=== PATIENT | female | born 1995 | race Caucasian/White ===

== ENCOUNTER 2018-06-06 18:31 | Emergency (ER) | payer BC, OTHER ==
[2018-06-06] MEDS ORDERED: Sodium Chloride 0.9% 1000 ML 1,000 ML IV STA (19:12)
--- NOTE | 2018-06-06 19:43 | ERPHSYRPT ---
- History of Present Illness Time Seen by Provider: 06/06/18 19:42 Historian: patient Exam Limitations: no limitations Patient Subjective Stated Complaint: is approx 10-11 weeks and is having lots of vomiting yesterday and today. was instructed by her family doctor to come to er if vomiting continues. Triage Nursing Assessment: ambulated to room per self. skin w/d, color normal, resp easy. abd soft. no vomiting at present time. has intermittent cramping in upper abd. denies diarrhea. she is to see ob doctor on friday Physician History: is approx 10-11 weeks and is having lots of vomiting yesterday and today. was instructed by her family doctor to come to er if vomiting continues. Timing/Duration: yesterday Activities at Onset: none Associated Symptoms: nausea, vomiting, other (she is 10-11 weeks .) Allergies/Adverse Reactions: Sulfa (Sulfonamide Antibiotics) Allergy (Verified 06/06/18 18:58) Home Medications: Vits W-Ca,Fe,FA(<1Mg) [] 1 each PO DAILY 06/06/18 [History] Hx Tetanus, Diphtheria Vaccination/Date Given: No Hx Influenza Vaccination/Date Given: No Hx Pneumococcal Vaccination/Date Given: No - Review of Systems Constitutional: No Fever, No Chills Eyes: No Symptoms Ears, Nose, & Throat: No Symptoms Respiratory: No Cough, No Dyspnea Cardiac: No Chest Pain, No Edema, No Syncope Abdominal/Gastrointestinal: No Abdominal Pain, No Nausea, No Vomiting, No Diarrhea Genitourinary Symptoms: No Dysuria Musculoskeletal: No Back Pain, No Neck Pain Skin: No Rash Neurological: No Dizziness, No Focal Weakness, No Sensory Changes Psychological: No Symptoms Endocrine: No Symptoms All Other Systems: Reviewed and Negative - Past Medical History Pertinent Past Medical History: Yes Other Medical History: reflux of kidneys - Past Surgical History Past Surgical History: Yes Musculoskeletal: Orthopedic Surgery Other Surgical History: right knee - Social History Smoking Status: Never smoker Exposure to second hand smoke: No Drug Use: none Patient Lives Alone: No - Female History Hx Last Menstrual Period: 03/25/18 Hx Now: Yes - Nursing Vital Signs Nursing Vital Signs: Initial Vital Signs Temperature 98.5 F 06/06/18 18:47 Pulse Rate 97 H 06/06/18 18:47 Respiratory Rate 16 06/06/18 18:47 Blood Pressure 122/99 06/06/18 18:47 O2 Sat by Pulse Oximetry 96 06/06/18 18:47 Pain Scale Pain Intensity 0 - Physical Exam General Appearance: no apparent distress, alert Eye Exam: PERRL/EOMI, eyes nml inspection Ears, Nose, Throat Exam: normal ENT inspection, pharynx normal, moist mucous membranes Neck Exam: normal inspection, non-tender, supple, full range of motion Respiratory Exam: normal breath sounds, lungs clear, No respiratory distress Cardiovascular Exam: regular rate/rhythm, normal heart sounds Gastrointestinal/Abdomen Exam: soft, No tenderness, No mass Back Exam: normal inspection, normal range of motion, No CVA tenderness, No vertebral tenderness Extremity Exam: normal inspection, normal range of motion, pelvis stable Neurologic Exam: alert, 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, cooperative, normal mood/affect, nml cerebellar function, sensation nml, No motor deficits Skin Exam: normal color, warm, dry SpO2: 96 Oxygen Delivery: Room Air - Course Nursing assessment & vital signs reviewed: Yes Ordered Tests: Active Orders 24 hr Category Date Time Status CBC W DIFF Stat Lab 06/06/18 19:45 Completed CMP Stat Lab 06/06/18 20:00 Completed CULTURE,URINE Stat Lab 06/06/18 20:23 Received HCG, Quantitative (Inhouse) Stat Lab 06/06/18 20:00 Received UA W/RFX UR CULTURE Stat Lab 06/06/18 20:23 Completed Medication Summary Generic Name Dose Route Start Last Admin Trade Name Freq PRN Reason Stop Dose Admin Ceftriaxone Sodium/Dextrose 1 g in 50 mls @ 100 mls/hr 06/06/18 20:55 Rocephin 1 Gm-D5w 50 Ml Bag IV 06/06/18 21:24 STAT STA Discontinued Medications Generic Name Dose Route Start Last Admin Trade Name Freq PRN Reason Stop Dose Admin Sodium Chloride 1,000 mls @ 999 mls/hr 06/06/18 19:12 06/06/18 20:24 Sodium Chloride 0.9% 1000 Ml IV 06/06/18 20:12 999 mls/hr .Q1H1M STA Administration Sodium Chloride Confirm 06/06/18 20:23 Sodium Chloride 0.9% 1000 Ml Administered 06/06/18 20:24 Dose 1,000 mls @ ud [facility] Lab/Rad Data: Laboratory Result Diagrams 06/06/18 19:45 06/06/18 20:00 Laboratory Results 06/06/18 06/06/18 06/06/18 Range/Units 20:23 20:00 19:45 WBC 14.8 H (4.0-10.5) K/mm3 RBC 4.77 (4.1-5.4) M/mm3 Hgb 14.5 (12.0-16.0) gm/dl Hct 42.3 (35-47) % MCV 88.7 (78-100) fl MCH 30.4 (26-32) pg MCHC 34.3 (32-36) g/dl RDW 12.7 (11.5-14.0) % Plt Count 249 (150-450) K/mm3 MPV 10.5 H (6-9.5) fl Gran % 73.6 H (36.0-66.0) % Eos # (Auto) 0.16 (0-0.5) Absolute Lymphs (auto) 2.41 (1.0-4.6) Absolute Monos (auto) 1.29 (0.0-1.3) Lymphocytes % 16.3 L (24.0-44.0) % Monocytes % 8.7 (0.0-12.0) % Eosinophils % 1.1 (0.00-5.0) % Basophils % 0.3 (0.0-0.4) % Absolute Granulocytes 10.85 H (1.4-6.9) Basophils # 0.04 (0-0.4) Sodium 136 L (137-145) mmol/L Potassium 3.9 (3.5-5.1) mmol/L Chloride 104 (98-107) mmol/L Carbon Dioxide 22 (22-30) mmol/L Anion Gap 14.0 (5-15) MEQ/L BUN 7 (7-17) mg/dL Creatinine 0.66 (0.52-1.04) mg/dL Estimated GFR > 60.0 ML/MIN Glucose 90 (74-106) mg/dL Calcium 9.8 (8.4-10.2) mg/dL Total Bilirubin 0.40 (0.2-1.3) mg/dL AST 25 (14-36) U/L ALT 34 (0-35) U/L Alkaline Phosphatase 58 (38-126) U/L Serum Total Protein 7.4 (6.3-8.2) g/dL Albumin 4.3 (3.5-5.0) g/dL Urine Color YELLOW (YELLOW) Urine Appearance SLIGHTLY CLOUDY (CLEAR) Urine pH 6.0 (5-6) Ur Specific [place] 1.006 (1.005-1.025) Urine Protein NEGATIVE (Negative) Urine Ketones NEGATIVE (NEGATIVE) Urine Blood NEGATIVE (0-5) Pako/ul Urine Nitrite POSITIVE (NEGATIVE) Urine Bilirubin NEGATIVE (NEGATIVE) Urine Urobilinogen NEGATIVE (0-1) mg/dL Ur Leukocyte Esterase TRACE (NEGATIVE) Urine WBC (Auto) 11-15 (0-5) /HPF Urine RBC (Auto) 0-2 (0-2) /HPF U Epithel Cells (Auto) FEW (FEW) /HPF Urine Bacteria (Auto) MODERATE (NEGATIVE) /HPF Urine Mucus (Auto) SLIGHT (NEGATIVE) /HPF Urine Culture Reflexed YES (NO) Urine Glucose NEGATIVE (NEGATIVE) mg/dL - Progress Progress: improved Counseled pt/family regarding: lab results, diagnosis, need for follow-up - Departure Time of Disposition: 21:16 Departure Disposition: Home Clinical Impression: Urinary tract bacterial infections Qualifiers: Weeks of gestation: 12 weeks Qualified Code(s): Z3A.12 - 12 weeks gestation of Condition: Stable Critical Care Time: No Referrals: MELINA CHRISTIANSON MD [Primary Care Provider] - Instructions: Urinary Tract Infections in Adults Additional Instructions: URINARY TRACT INFECTION 1. You will need to drink plenty of fluids in order to keep your urinary system flushed. These fluids should mainly consist of water and juices. 2. Take medications as directed. You need to completely finish any antiobiotic prescription given. 3. Try to avoid coffee, tea, alcohol, and seasoned foods as they may cause bladder irritation. 4. If signs and symptoms persist after 3-4 days, you will need to follow up with your family physician. 5. Female Patients: A. Avoid intercourse for 3-4 days. B. Empty bladder before and after intercourse to reduce risk of re- infection. C. After emptying bladder, wipe from front to back to reduce the risk of re- infection. Prescriptions: Nitrofurantoin Macro 100 mg [Macrobid 100MG Capsule] 100 mg PO BID #20 cap
[2018-06-06] MEDS ORDERED: Sodium Chloride 0.9% 1000 ML 1,000 ML ONE (20:23)
[2018-06-06 20:34] LABS: BASOPHIL % 0.3 % (0.0-0.4); Basophil (Absolute #) 0.04 (0-0.4); Eosinophil % 1.1 % (0.00-5.0); Eosinophil (Absolute #) 0.16 (0-0.5); Granulocyte Absolute (ANC) 10.85 (1.4-6.9); Granulocytes % 73.6 % (36.0-66.0); Hematocrit 42.3 % (35-47); Hemoglobin 14.5 gm/dl (12.0-16.0); Lymphocyte (Absolute #) 2.41 (1.0-4.6); Lymphocytes % 16.3 % (24.0-44.0); Mean Cell Volume 88.7 fl (78-100); Mean Corpuscular Hemoglobin 30.4 pg (26-32); Mean Corpuscular Hgb Concent. 34.3 g/dl (32-36); Mean Platelet Volume 10.5 fl (6-9.5); Monocyte (Absolute #) 1.29 (0.0-1.3); Monocytes % 8.7 % (0.0-12.0); Platelet Count 249 K/mm3 (150-450); Red Blood Count 4.77 M/mm3 (4.1-5.4); Red Cell Distribution Width 12.7 % (11.5-14.0); White Blood Count 14.8 K/mm3 (4.0-10.5)
[2018-06-06 20:41] LABS: ALBUMIN 4.3 g/dL (3.5-5.0); ALKALINE PHOSPHATASE 58 U/L (38-126); BLOOD UREA NITROGEN 7 mg/dL (7-17); CHLORIDE 104 mmol/L (98-107); Calcium 9.8 mg/dL (8.4-10.2); Carbon Dioxide 22 mmol/L (22-30); Creatinine 1 0.66 mg/dL (0.52-1.04); Glucose 90 mg/dL (74-106); Potassium 3.9 mmol/L (3.5-5.1); SGOT/AST 25 U/L (14-36); SGPT/ALT 34 U/L (0-35); SODIUM 136 mmol/L (137-145); Total Protein 7.4 g/dL (6.3-8.2)
[2018-06-06] MEDS ORDERED: ROCEPHIN 1 Gm-D5w 50 ml Bag** 1 G/50 ML IVPB IV STA (20:55)
[2018-06-06 21:07] LABS: Appearance SLIGHTLY CLOUDY (CLEAR); Bilirubin NEGATIVE (NEGATIVE); Blood NEGATIVE Ery/ul (0-5); Glucose NEGATIVE (NEGATIVE); Ketones NEGATIVE (NEGATIVE); Leukocyte Esterase TRACE (NEGATIVE); Nitrite POSITIVE (NEGATIVE); Protein,Urine Dip NEGATIVE (Negative); Specific Gravity 1.006 (1.005-1.025); Urobilinogen NEGATIVE mg/dL (0-1)
[2018-06-06] MEDS ORDERED: ROCEPHIN 1 Gm-D5w 50 ml Bag** 1 G/50 ML IVPB IV ONE (21:15)
[2018-06-06 21:53] VITALS: BP 115/67; PULSE 80; O2SAT 98
== END 2018-06-06 22:24 | disposition home or self-care (01) ==
LOC: ED 18:31
DX: O23.41 Unspecified infection of urinary tract in pregnancy, first trimester (principal); Z3A.12 12 weeks gestation of pregnancy
CPT/HCPCS: 36415; 80053; 81001; 84702; 85025; 87077; 87086; 87186; 96360; 96365; 99284; J0696

== ENCOUNTER 2018-06-16 12:42 | Emergency (ER) | payer OTHER ==
--- NOTE | 2018-06-16 13:28 | ERPHSYRPT ---
- History of Present Illness Time Seen by Provider: 06/16/18 13:10 Source: patient, family Exam Limitations: no limitations Patient Subjective Stated Complaint: pt here for vomiting since last night, vomited more than 10 today, no fever, co abd pain to right side, she is 10 days , no vaginal bleeding or cramping, Triage Nursing Assessment: pt alert, resp easy,skin w/d/p. abb soft, moves all ext Physician History: 23 y/o white female who is 10 weeks presents with n/v that began this am at 0100. she denies abd pain, denies headache, denies diarrhea. she does not have vaginal bleeding. pt is in the middle of macrodantin tx for a uti. Timing/Duration: today Severity: mild Associated Symptoms: nausea, vomiting, No abdominal pain, No cough, No chest pain, No fever, No headaches Allergies/Adverse Reactions: Sulfa (Sulfonamide Antibiotics) Allergy (Verified 06/16/18 12:58) Home Medications: Vits W-Ca,Fe,FA(<1Mg) [] 1 each PO DAILY 06/06/18 [History] Hx Tetanus, Diphtheria Vaccination/Date Given: No Hx Influenza Vaccination/Date Given: No Hx Pneumococcal Vaccination/Date Given: No Immunizations Up to Date: Yes - Review of Systems Constitutional: No Symptoms Eyes: No Symptoms Ears, Nose, & Throat: No Symptoms Respiratory: No Symptoms Cardiac: No Symptoms Abdominal/Gastrointestinal: Nausea, Vomiting, No Abdominal Pain, No Diarrhea Genitourinary Symptoms: No Symptoms, No Dysuria, No Frequency, No Hematuria Musculoskeletal: No Symptoms Skin: No Symptoms Neurological: No Symptoms, No Dizziness, No Headache Psychological: No Symptoms Endocrine: No Symptoms Hematologic/Lymphatic: No Symptoms Immunological/Allergic: No Symptoms All Other Systems: Reviewed and Negative - Past Medical History Pertinent Past Medical History: Yes Neurological History: No Pertinent History ENT History: No Pertinent History Cardiac History: No Pertinent History Respiratory History: No Pertinent History Endocrine Medical History: No Pertinent History Musculoskeletal History: No Pertinent History GI Medical History: No Pertinent History History: No Pertinent History Psycho-Social History: No Pertinent History Female Reproductive Disorders: No Pertinent History Other Medical History: reflux of kidneys - Past Surgical History Past Surgical History: Yes Neuro Surgical History: No Pertinent History Cardiac: No Pertinent History Respiratory: No Pertinent History Gastrointestinal: No Pertinent History Genitourinary: No Pertinent History Musculoskeletal: Orthopedic Surgery Female Surgical History: No Pertinent History Other Surgical History: right knee - Social History Smoking Status: Never smoker Exposure to second hand smoke: Yes Drug Use: none Patient Lives Alone: No - Female History Hx Last Menstrual Period: march Hx Now: Yes Expected Date of Delivery: 02/10/1919 - Nursing Vital Signs Nursing Vital Signs: Initial Vital Signs Temperature 97.8 F 06/16/18 12:53 Pulse Rate 88 06/16/18 12:53 Respiratory Rate 16 06/16/18 12:53 Blood Pressure 123/86 06/16/18 12:53 O2 Sat by Pulse Oximetry 97 06/16/18 12:53 Pain Scale Pain Intensity 0 - Physical Exam General Appearance: no apparent distress, alert, anxiety Eye Exam: PERRL/EOMI, eyes nml inspection Ears, Nose, Throat Exam: normal ENT inspection, moist mucous membranes Neck Exam: normal inspection, non-tender, supple, full range of motion Respiratory Exam: normal breath sounds, lungs clear, airway intact, No chest tenderness, No respiratory distress, No accessory muscle use, No rhonchi, No wheezing, No stridor Cardiovascular Exam: regular rate/rhythm, normal heart sounds, normal peripheral pulses Gastrointestinal/Abdomen Exam: soft, normal bowel sounds, No tenderness, No guarding, No rebound Pelvic Exam: not done Rectal Exam: not done Back Exam: normal inspection, normal range of motion, No CVA tenderness, No vertebral tenderness Extremity Exam: normal inspection, normal range of motion, pelvis stable Neurologic Exam: alert, 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, cooperative, exercise science internship II-XII nml as tested, normal mood/affect Skin Exam: normal color, warm, dry Lymphatic Exam: adenopathy SpO2: 97 Oxygen Delivery: Room Air - Course Nursing assessment & vital signs reviewed: Yes Ordered Tests: Active Orders 24 hr Category Date Time Status Cath for Specimen-Straight STAT Care 06/16/18 13:33 Active Clean Catch Urine Specimen STAT Care 06/16/18 13:31 Active IV Insertion STAT Care 06/16/18 14:15 Active AMYLASE Stat Lab 06/16/18 13:50 Completed CBC W DIFF Stat Lab 06/16/18 13:50 Completed CMP Stat Lab 06/16/18 13:50 Completed LIPASE Stat Lab 06/16/18 13:50 Completed UA W/RFX UR CULTURE Stat Lab 06/16/18 14:00 Completed Medication Summary Discontinued Medications Generic Name Dose Route Start Last Admin Trade Name Constantin PRN Reason Stop Dose Admin Sodium Chloride 1,000 mls @ 999 mls/hr 06/16/18 13:31 06/16/18 14:55 Sodium Chloride 0.9% 1000 Ml IV 06/16/18 14:31 Infused .Q1H1M STA Infusion Sodium Chloride Confirm 06/16/18 13:39 Sodium Chloride 0.9% 1000 Ml Administered 06/16/18 13:40 Dose 1,000 mls @ ud .ROUTE .STK-[facility] ONE Sodium Chloride 1,000 mls @ 999 mls/hr 06/16/18 14:55 06/16/18 16:06 Sodium Chloride 0.9% 1000 Ml IV 06/16/18 15:55 Infused .Q1H1M STA Infusion Sodium Chloride Confirm 06/16/18 14:57 Sodium Chloride 0.9% 1000 Ml Administered 06/16/18 14:58 Dose 1,000 mls @ ud .ROUTE .STK-[facility] ONE Ondansetron HCl 4 mg 06/16/18 13:31 06/16/18 13:50 Zofran 4 Mg/2 Ml Vial IV 06/16/18 13:32 4 mg STAT ONE Administration Ondansetron HCl Confirm 06/16/18 13:39 Zofran 4 Mg/2 Ml Vial Administered 06/16/18 13:40 Dose 4 mg .ROUTE .STK-MED ONE Lab/Rad Data: Laboratory Result Diagrams 06/16/18 13:50 06/16/18 13:50 Laboratory Results 06/16/18 06/16/18 06/16/18 Range/Units 14:00 13:50 13:50 WBC (4.0-10.5) K/mm3 RBC (4.1-5.4) M/mm3 Hgb (12.0-16.0) gm/dl Hct (35-47) % MCV (78-100) fl MCH (26-32) pg MCHC (32-36) g/dl RDW (11.5-14.0) % Plt Count (150-450) K/mm3 MPV (6-9.5) fl Gran % (36.0-66.0) % Eos # (Auto) (0-0.5) Absolute Lymphs (auto) (1.0-4.6) Absolute Monos (auto) (0.0-1.3) Lymphocytes % (24.0-44.0) % Monocytes % (0.0-12.0) % Eosinophils % (0.00-5.0) % Basophils % (0.0-0.4) % Absolute Granulocytes (1.4-6.9) Basophils # (0-0.4) Sodium 138 (137-145) mmol/L Potassium 4.0 (3.5-5.1) mmol/L Chloride 106 (98-107) mmol/L Carbon Dioxide 20 L (22-30) mmol/L Anion Gap 15.3 H (5-15) MEQ/L BUN 4 L (7-17) mg/dL Creatinine 0.55 (0.52-1.04) mg/dL Estimated GFR > 60.0 ML/MIN Glucose 89 (74-106) mg/dL Calcium 9.5 (8.4-10.2) mg/dL Total Bilirubin 0.70 (0.2-1.3) mg/dL AST 23 (14-36) U/L ALT 27 (0-35) U/L Alkaline Phosphatase 63 (38-126) U/L Serum Total Protein 7.6 (6.3-8.2) g/dL Albumin 4.3 (3.5-5.0) g/dL Amylase 64 (30-110) U/L Lipase 94 (23-300) U/L Urine Color YELLOW (YELLOW) Urine Appearance CLOUDY (CLEAR) Urine pH 7.0 (5-6) Ur Specific [place] 1.016 (1.005-1.025) Urine Protein NEGATIVE (Negative) Urine Ketones SMALL-15 (NEGATIVE) Urine Blood NEGATIVE (0-5) Pako/ul Urine Nitrite NEGATIVE (NEGATIVE) Urine Bilirubin NEGATIVE (NEGATIVE) Urine Urobilinogen 2 (0-1) mg/dL Ur Leukocyte Esterase NEGATIVE (NEGATIVE) Urine WBC (Auto) 3-5 (0-5) /HPF Urine RBC (Auto) 0-2 (0-2) /HPF U Epithel Cells (Auto) RARE (FEW) /HPF Urine Bacteria (Auto) RARE (NEGATIVE) /HPF Amorphous Crystals MANY (NEGATIVE) /HPF Urine Mucus (Auto) SLIGHT (NEGATIVE) /HPF Urine Culture Reflexed NO (NO) Urine Glucose NEGATIVE (NEGATIVE) mg/dL Influenza Type A Ag NEGATIVE (NEGATIVE) Influenza Type B Ag NEGATIVE (NEGATIVE) RSV (PCR) NEGATIVE (Negative) 06/16/18 Range/Units 13:50 WBC 14.2 H (4.0-10.5) K/mm3 RBC 4.80 (4.1-5.4) M/mm3 Hgb 14.5 (12.0-16.0) gm/dl Hct 42.3 (35-47) % MCV 88.1 (78-100) fl MCH 30.2 (26-32) pg MCHC 34.3 (32-36) g/dl RDW 12.9 (11.5-14.0) % Plt Count 249 (150-450) K/mm3 MPV 10.5 H (6-9.5) fl Gran % 77.0 H (36.0-66.0) % Eos # (Auto) 0.12 (0-0.5) Absolute Lymphs (auto) 1.95 (1.0-4.6) Absolute Monos (auto) 1.18 (0.0-1.3) Lymphocytes % 13.7 L (24.0-44.0) % Monocytes % 8.3 (0.0-12.0) % Eosinophils % 0.8 (0.00-5.0) % Basophils % 0.2 (0.0-0.4) % Absolute Granulocytes 10.94 H (1.4-6.9) Basophils # 0.03 (0-0.4) Sodium (137-145) mmol/L Potassium (3.5-5.1) mmol/L Chloride (98-107) mmol/L Carbon Dioxide (22-30) mmol/L Anion Gap (5-15) MEQ/L BUN (7-17) mg/dL Creatinine (0.52-1.04) mg/dL Estimated GFR ML/MIN Glucose (74-106) mg/dL Calcium (8.4-10.2) mg/dL Total Bilirubin (0.2-1.3) mg/dL AST (14-36) U/L ALT (0-35) U/L Alkaline Phosphatase (38-126) U/L Serum Total Protein (6.3-8.2) g/dL Albumin (3.5-5.0) g/dL Amylase (30-110) U/L Lipase (23-300) U/L Urine Color (YELLOW) Urine Appearance (CLEAR) Urine pH (5-6) Ur Specific [place] (1.005-1.025) Urine Protein (Negative) Urine Ketones (NEGATIVE) Urine Blood (0-5) Pako/ul Urine Nitrite (NEGATIVE) Urine Bilirubin (NEGATIVE) Urine Urobilinogen (0-1) mg/dL Ur Leukocyte Esterase (NEGATIVE) Urine WBC (Auto) (0-5) /HPF Urine RBC (Auto) (0-2) /HPF U Epithel Cells (Auto) (FEW) /HPF Urine Bacteria (Auto) (NEGATIVE) /HPF Amorphous Crystals (NEGATIVE) /HPF Urine Mucus (Auto) (NEGATIVE) /HPF Urine Culture Reflexed (NO) Urine Glucose (NEGATIVE) mg/dL Influenza Type A Ag (NEGATIVE) Influenza Type B Ag (NEGATIVE) RSV (PCR) (Negative) - Progress Progress: improved Progress Note: 06/16/18 14:55 pt states she is feeling a little better. no further nausea. Counseled pt/family regarding: lab results, diagnosis, need for follow-up - Departure Time of Disposition: 16:11 Departure Disposition: Home Clinical Impression: Vomiting as reason for care in Condition: Stable Critical Care Time: No Referrals: LINUS SCOTT [Primary Care Provider] - Additional Instructions: Drink plenty of fluids. follow up with seater assembler for further management. continue your antibiotics as prescribed.
[2018-06-16] MEDS ORDERED: Sodium Chloride 0.9% 1000 ML 1,000 ML IV STA ×2 (13:31→14:55)
[2018-06-16] MEDS ORDERED: Zofran 4 MG/2 ML VIAL IV ONE (13:31)
[2018-06-16] MEDS ORDERED: Zofran 4 MG/2 ML VIAL ONE (13:39)
[2018-06-16] MEDS ORDERED: Sodium Chloride 0.9% 1000 ML 1,000 ML ONE ×2 (13:39→14:57)
[2018-06-16 13:52] LABS: BASOPHIL % 0.2 % (0.0-0.4); Basophil (Absolute #) 0.03 (0-0.4); Eosinophil % 0.8 % (0.00-5.0); Eosinophil (Absolute #) 0.12 (0-0.5); Granulocyte Absolute (ANC) 10.94 (1.4-6.9); Hematocrit 42.3 % (35-47); Hemoglobin 14.5 gm/dl (12.0-16.0); Lymphocyte (Absolute #) 1.95 (1.0-4.6); Lymphocytes % 13.7 % (24.0-44.0); Mean Cell Volume 88.1 fl (78-100); Mean Corpuscular Hemoglobin 30.2 pg (26-32); Mean Corpuscular Hgb Concent. 34.3 g/dl (32-36); Mean Platelet Volume 10.5 fl (6-9.5); Monocyte (Absolute #) 1.18 (0.0-1.3); Monocytes % 8.3 % (0.0-12.0); Platelet Count 249 K/mm3 (150-450); Red Cell Distribution Width 12.9 % (11.5-14.0); White Blood Count 14.2 K/mm3 (4.0-10.5)
[2018-06-16 14:09] LABS: ALBUMIN 4.3 g/dL (3.5-5.0); ALKALINE PHOSPHATASE 63 U/L (38-126); AMYLASE 64 U/L (30-110); ANION GAP 15.3 MEQ/L (5-15); BLOOD UREA NITROGEN 4 mg/dL (7-17); CHLORIDE 106 mmol/L (98-107); Calcium 9.5 mg/dL (8.4-10.2); Carbon Dioxide 20 mmol/L (22-30); Creatinine 1 0.55 mg/dL (0.52-1.04); Glucose 89 mg/dL (74-106); LIPASE 94 U/L (23-300); SGOT/AST 23 U/L (14-36); SGPT/ALT 27 U/L (0-35); SODIUM 138 mmol/L (137-145); Total Protein 7.6 g/dL (6.3-8.2)
[2018-06-16 14:34] LABS: INFLUENZA A NEGATIVE (NEGATIVE); INFLUENZA B NEGATIVE (NEGATIVE); RESPIRATORY SYNCTIAL VIRUS NEGATIVE (Negative)
[2018-06-16 14:45] LABS: Appearance CLOUDY (CLEAR); Glucose NEGATIVE (NEGATIVE); Ketones SMALL-15 (NEGATIVE); Leukocyte Esterase NEGATIVE (NEGATIVE); Nitrite NEGATIVE (NEGATIVE); Protein,Urine Dip NEGATIVE (Negative); Specific Gravity 1.016 (1.005-1.025)
[2018-06-16 14:46] LABS: Bilirubin NEGATIVE (NEGATIVE); Blood NEGATIVE Ery/ul (0-5); Urobilinogen 2 mg/dL (0-1)
[2018-06-16 15:50] VITALS: PULSE 88
[2018-06-16 16:17] VITALS: BP 113/69; O2SAT 98
== END 2018-06-16 16:30 | disposition home or self-care (01) ==
LOC: ED 12:42
DX: O21.9 Vomiting of pregnancy, unspecified (principal); Z3A.10 10 weeks gestation of pregnancy
CPT/HCPCS: 36415; 80053; 81001; 82150; 83690; 85025; 87631; 96360; 96361; 96374; 99284; P9612; J2405

== ENCOUNTER 2018-06-26 17:29 | Emergency (ER) | payer OTHER ==
[2018-06-26] MEDS ORDERED: Zofran 4 MG/2 ML VIAL IV ONE (17:41)
[2018-06-26] MEDS ORDERED: Sodium Chloride 0.9% 1000 ML 1,000 ML IV STA (17:41)
[2018-06-26] MEDS ORDERED: Sodium Chloride 0.9% 1000 ML 1,000 ML ONE (17:47)
[2018-06-26] MEDS ORDERED: Zofran 4 MG/2 ML VIAL ONE (17:47)
--- NOTE | 2018-06-26 17:47 | ERPHSYRPT ---
- History of Present Illness Historian: patient Hx Tetanus, Diphtheria Vaccination/Date Given: No Hx Influenza Vaccination/Date Given: No Hx Pneumococcal Vaccination/Date Given: No <HU QUEZADA - Last Filed: 06/26/18 18:48> <ALISON GRIFFIN - Last Filed: 06/26/18 21:09> - History of Present Illness Time Seen by Provider: 06/26/18 17:44 Physician History: mild LLQ ache pain for 2 weeks since her last BM, no fever, +NV, rad to back, no vag bleeding, + 11w4d, last us 06/08 was hx normal (HU QUEZADA) Allergies/Adverse Reactions: Sulfa (Sulfonamide Antibiotics) Allergy (Verified 06/16/18 12:58) Home Medications: Vits W-Ca,Fe,FA(<1Mg) [] 1 each PO DAILY 06/06/18 [History] - Review of Systems Constitutional: No Fever Eyes: No Vision Changes Ears, Nose, & Throat: No Mouth Pain Respiratory: No Dyspnea Cardiac: No Chest Pain Abdominal/Gastrointestinal: Abdominal Pain, Nausea, Vomiting Genitourinary Symptoms: No Dysuria Musculoskeletal: Back Pain Skin: No Rash Neurological: No Dizziness <HU QUEZADA - Last Filed: 06/26/18 18:48> - Past Medical History Pertinent Past Medical History: Yes Neurological History: No Pertinent History ENT History: No Pertinent History Cardiac History: No Pertinent History Respiratory History: No Pertinent History Endocrine Medical History: No Pertinent History Musculoskeletal History: No Pertinent History GI Medical History: No Pertinent History History: No Pertinent History Psycho-Social History: No Pertinent History Female Reproductive Disorders: No Pertinent History Other Medical History: reflux of kidneys - Past Surgical History Past Surgical History: Yes Neuro Surgical History: No Pertinent History Cardiac: No Pertinent History Respiratory: No Pertinent History Gastrointestinal: No Pertinent History Genitourinary: No Pertinent History Musculoskeletal: Orthopedic Surgery Female Surgical History: No Pertinent History Other Surgical History: right knee - Social History Smoking Status: Never smoker Exposure to second hand smoke: Yes Drug Use: none Patient Lives Alone: No <HU QUEZADA - Last Filed: 06/26/18 18:48> - Physical Exam General Appearance: no apparent distress Eye Exam: eyes nml inspection Ears, Nose, Throat Exam: moist mucous membranes Neck Exam: normal inspection Respiratory Exam: No respiratory distress Cardiovascular Exam: regular rate/rhythm Gastrointestinal/Abdomen Exam: soft, tenderness, No rebound Back Exam: No CVA tenderness Extremity Exam: normal inspection Neurologic Exam: alert, 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, cooperative Skin Exam: warm, dry <HU QUEZADA - Last Filed: 06/26/18 18:48> - Nursing Vital Signs Nursing Vital Signs: Initial Vital Signs Pulse Rate 74 06/26/18 17:29 Respiratory Rate 20 06/26/18 17:29 Blood Pressure 118/77 06/26/18 17:29 O2 Sat by Pulse Oximetry 95 06/26/18 17:29 Pain Scale Pain Intensity 5 Ordered Tests: Active Orders 24 hr Category Date Time Status IV Insertion STAT Care 06/26/18 17:41 Active Nursing [Miscellaneous Nursing Order] ROUTINE Care 06/26/18 17:43 Active CBC W DIFF Stat Lab 06/26/18 17:56 Completed CMP Stat Lab 06/26/18 17:56 Completed LIPASE Stat Lab 06/26/18 17:56 Completed UA W/RFX UR CULTURE Stat Lab 06/26/18 19:31 Completed Medication Summary Discontinued Medications Generic Name Dose Route Start Last Admin Trade Name Luisq PRN Reason Stop Dose Admin Sodium Chloride 1,000 mls @ 999 mls/hr 06/26/18 17:41 06/26/18 18:04 Sodium Chloride 0.9% 1000 Ml IV 06/26/18 18:41 999 mls/hr .Q1H1M STA Administration Sodium Chloride Confirm 06/26/18 17:47 Sodium Chloride 0.9% 1000 Ml Administered 06/26/18 17:48 Dose 1,000 mls @ ud .ROUTE .[facility]K-[facility] ONE Ondansetron HCl 4 mg 06/26/18 17:41 06/26/18 18:05 Zofran 4 Mg/2 Ml Vial IV 06/26/18 17:42 4 mg STAT ONE Administration Ondansetron HCl Confirm 06/26/18 17:47 Zofran 4 Mg/2 Ml Vial Administered 06/26/18 17:48 Dose 4 mg .ROUTE .STK-[facility] ONE Lab/Rad Data: Laboratory Result Diagrams 06/26/18 17:56 06/26/18 17:56 Laboratory Results 06/26/18 06/26/18 06/26/18 Range/Units 19:31 17:56 17:56 WBC 19.7 H (4.0-10.5) K/mm3 RBC 4.64 (4.1-5.4) M/mm3 Hgb 14.3 (12.0-16.0) gm/dl Hct 41.0 (35-47) % MCV 88.4 (78-100) fl MCH 30.8 (26-32) pg MCHC 34.9 (32-36) g/dl RDW 12.7 (11.5-14.0) % Plt Count 211 (150-450) K/mm3 MPV 11.6 H (6-9.5) fl Gran % 88.1 H (36.0-66.0) % Eos # (Auto) 0.05 (0-0.5) Absolute Lymphs (auto) 1.38 (1.0-4.6) Absolute Monos (auto) 0.88 (0.0-1.3) Lymphocytes % 7.0 L (24.0-44.0) % Monocytes % 4.5 (0.0-12.0) % Eosinophils % 0.3 (0.00-5.0) % Basophils % 0.1 (0.0-0.4) % Absolute Granulocytes 17.34 H (1.4-6.9) Basophils # 0.02 (0-0.4) Sodium 136 L (137-145) mmol/L Potassium 3.9 (3.5-5.1) mmol/L Chloride 104 (98-107) mmol/L Carbon Dioxide 19 L (22-30) mmol/L Anion Gap 16.9 H (5-15) MEQ/L BUN 7 (7-17) mg/dL Creatinine 0.50 L (0.52-1.04) mg/dL Estimated GFR > 60.0 ML/MIN Glucose 95 (74-106) mg/dL Calcium 9.6 (8.4-10.2) mg/dL Total Bilirubin 0.60 (0.2-1.3) mg/dL AST 26 (14-36) U/L ALT 31 (0-35) U/L Alkaline Phosphatase 67 (38-126) U/L Serum Total Protein 8.2 (6.3-8.2) g/dL Albumin 4.7 (3.5-5.0) g/dL Lipase 142 (23-300) U/L Urine Color ALEXANDER (YELLOW) Urine Appearance SLIGHTLY CLOUDY (CLEAR) Urine pH 5.0 (5-6) Ur Specific [place] 1.028 (1.005-1.025) Urine Protein 30 (Negative) Urine Ketones MODERATE (NEGATIVE) Urine Blood NEGATIVE (0-5) Pako/ul Urine Nitrite NEGATIVE (NEGATIVE) Urine Bilirubin NEGATIVE (NEGATIVE) Urine Urobilinogen 4 (0-1) mg/dL Ur Leukocyte Esterase NEGATIVE (NEGATIVE) Urine WBC (Auto) 3-5 (0-5) /HPF Urine RBC (Auto) 0-2 (0-2) /HPF U Epithel Cells (Auto) RARE (FEW) /HPF Urine Bacteria (Auto) RARE (NEGATIVE) /HPF Urine Mucus (Auto) MANY (NEGATIVE) /HPF Urine Culture Reflexed NO (NO) Urine Glucose NEGATIVE (NEGATIVE) mg/dL <HU QUEZADA - Last Filed: 06/26/18 18:48> - Progress Progress: improved Counseled pt/family regarding: lab results, diagnosis <ALISON GRIFFIN - Last Filed: 06/26/18 21:09> - Progress Progress Note: 06/26/18 18:[address] Griffin at 19:00 (HU QUEZADA) 06/26/18 19:47 Pt care discussed and care accepted from Dr Quezada at 19:00. 06/26/18 19:[address] Quezada's page. Dr Collins is not nonfarm animal caretaker for pt's OB doctor, Dr Cantor, who is taking his own call tonight. 06/26/18 20:28 Enema produced good BM and pt is now pain-free and would like to go home. 06/26/18 21:06 I discussed pt with Elen Cantor and Karina. Agrees to have pt return home. Pt can call him if needed. (ALISON GRIFFIN) <HU QUEZADA - Last Filed: 06/26/18 18:48> - Departure Time of Disposition: 21:08 Departure Disposition: Home Critical Care Time: No <ALISON GRIFFIN - Last Filed: 06/26/18 21:09> - Departure Clinical Impression: Constipation Condition: Stable Referrals: LINUS SCOTT [Primary Care Provider] - Additional Instructions: You had an episode of constipation. You were given an enema with good results in the ER. I spoke with your OB doctor, Dr. Cantor. If you have any more problems, he would like for you to call him or see him in the office on Friday. Stay well hydrated.
[2018-06-26 18:12] LABS: BASOPHIL % 0.1 % (0.0-0.4); Basophil (Absolute #) 0.02 (0-0.4); Eosinophil % 0.3 % (0.00-5.0); Eosinophil (Absolute #) 0.05 (0-0.5); Granulocyte Absolute (ANC) 17.34 (1.4-6.9); Granulocytes % 88.1 % (36.0-66.0); Hemoglobin 14.3 gm/dl (12.0-16.0); Lymphocyte (Absolute #) 1.38 (1.0-4.6); Mean Cell Volume 88.4 fl (78-100); Mean Corpuscular Hemoglobin 30.8 pg (26-32); Mean Corpuscular Hgb Concent. 34.9 g/dl (32-36); Mean Platelet Volume 11.6 fl (6-9.5); Monocyte (Absolute #) 0.88 (0.0-1.3); Monocytes % 4.5 % (0.0-12.0); Platelet Count 211 K/mm3 (150-450); Red Blood Count 4.64 M/mm3 (4.1-5.4); Red Cell Distribution Width 12.7 % (11.5-14.0); White Blood Count 19.7 K/mm3 (4.0-10.5)
[2018-06-26 18:30] LABS: ALBUMIN 4.7 g/dL (3.5-5.0); ALKALINE PHOSPHATASE 67 U/L (38-126); ANION GAP 16.9 MEQ/L (5-15); BLOOD UREA NITROGEN 7 mg/dL (7-17); CHLORIDE 104 mmol/L (98-107); Calcium 9.6 mg/dL (8.4-10.2); Carbon Dioxide 19 mmol/L (22-30); Glucose 95 mg/dL (74-106); LIPASE 142 U/L (23-300); Potassium 3.9 mmol/L (3.5-5.1); SGOT/AST 26 U/L (14-36); SGPT/ALT 31 U/L (0-35); SODIUM 136 mmol/L (137-145); Total Protein 8.2 g/dL (6.3-8.2)
[2018-06-26 19:53] LABS: Appearance SLIGHTLY CLOUDY (CLEAR); Bilirubin NEGATIVE (NEGATIVE); Blood NEGATIVE Ery/ul (0-5); Glucose NEGATIVE (NEGATIVE); Ketones MODERATE (NEGATIVE); Leukocyte Esterase NEGATIVE (NEGATIVE); Nitrite NEGATIVE (NEGATIVE); Protein,Urine Dip 30 (Negative); Specific Gravity 1.028 (1.005-1.025); Urobilinogen 4 mg/dL (0-1)
[2018-06-26 21:37] VITALS: BP 122/72; PULSE 78; O2SAT 99
== END 2018-06-26 21:37 | disposition home or self-care (01) ==
LOC: ED 17:29
DX: O26.891 Other specified pregnancy related conditions, first trimester (principal); Z3A.11 11 weeks gestation of pregnancy; R10.32 Left lower quadrant pain; R11.2 Nausea with vomiting, unspecified
CPT/HCPCS: 36000; 36415; 80053; 81001; 83690; 85025; 96374; 96375; 96376; 99284; J2405

== ENCOUNTER 2018-08-08 14:06 | Emergency (ER) | payer OTHER ==
[2018-08-08 14:27] VITALS: O2SAT 99
[2018-08-08 14:37] LABS: Appearance CLOUDY (CLEAR); Bilirubin NEGATIVE (NEGATIVE); Blood NEGATIVE Ery/ul (0-5); Glucose NEGATIVE (NEGATIVE); Ketones SMALL (NEGATIVE); Leukocyte Esterase MODERATE (NEGATIVE); Nitrite NEGATIVE (NEGATIVE); Protein,Urine Dip NEGATIVE (Negative); Specific Gravity 1.016 (1.005-1.025); Urobilinogen 4 mg/dL (0-1)
[2018-08-08] MEDS ORDERED: Sodium Chloride 0.9% 1000 ML 1,000 ML IV STA (14:40)
[2018-08-08] MEDS ORDERED: Phenergan 25 MG INJ IV ONE (14:40)
--- NOTE | 2018-08-08 14:41 | ERPHSYRPT ---
- History of Present Illness Time Seen by Provider: 08/08/18 14:37 Historian: patient, other Exam Limitations: no limitations Patient Subjective Stated Complaint: pt reports left sided abd pain starting approx 0200, states she is 17 weeks and also has vomiting starting a few hours ago as well as weakness. pt had her initial visit 07/30/18 with her OB and states everything checked out okay at that time. pt has experienced some constipation recently but reports normal BM yesterday. pt denies any vaginal discharge or bleeding. pt states she has decreased urination. Triage Nursing Assessment: pt is aox3, pupils perrl, afebrile, resps easy and non labored, pt radial pulses strong and equal, abd soft with tenderness to the LLQ, bowel sounds present and normoactive x4, pt skin pink warm dry. Physician History: The patient is a 23-year-old female at 17 weeks 5 days complaining of mild abdominal pain that began this morning. She feels she is dehydrated. She vomited a couple of times today. She tried to call her OB doctor, Dr. Cantor, but was unable to get through. She has a history of constipation during . Her last bowel movement was yesterday. She denies fever or chills. She denies any vaginal discharge or bleeding. Timing/Duration: today Activities at Onset: none Quality: aching Abdominal Pain Onset Location: RLQ, LLQ Pain Radiation: no radiation Severity of Pain-Max: mild Severity of Pain-Current: mild Modifying Factors: Improves With: nothing, vomiting Associated Symptoms: vomiting Previous symptoms: no prior history Allergies/Adverse Reactions: Sulfa (Sulfonamide Antibiotics) Allergy (Verified 08/08/18 14:27) Home Medications: Vits W-Ca,Fe,FA(<1Mg) [] 1 each PO DAILY 06/06/18 [History] Hx Tetanus, Diphtheria Vaccination/Date Given: (unk) Hx Influenza Vaccination/Date Given: Yes Hx Pneumococcal Vaccination/Date Given: No Immunizations Up to Date: Yes - Review of Systems Constitutional: No Fever, No Chills Eyes: No Symptoms Ears, Nose, & Throat: No Symptoms Respiratory: No Cough, No Dyspnea Cardiac: No Chest Pain, No Edema, No Syncope Abdominal/Gastrointestinal: Abdominal Pain, Nausea, Vomiting Genitourinary Symptoms: No Dysuria Musculoskeletal: No Back Pain, No Neck Pain Skin: No Rash Neurological: No Dizziness, No Focal Weakness, No Sensory Changes Psychological: No Symptoms Endocrine: No Symptoms Hematologic/Lymphatic: No Symptoms Immunological/Allergic: No Symptoms All Other Systems: Reviewed and Negative - Past Medical History Pertinent Past Medical History: Yes Neurological History: No Pertinent History ENT History: No Pertinent History Cardiac History: No Pertinent History Respiratory History: No Pertinent History Endocrine Medical History: No Pertinent History Musculoskeletal History: No Pertinent History GI Medical History: No Pertinent History History: No Pertinent History Psycho-Social History: No Pertinent History Female Reproductive Disorders: No Pertinent History Other Medical History: reflux of kidneys - Past Surgical History Past Surgical History: Yes Neuro Surgical History: No Pertinent History Cardiac: No Pertinent History Respiratory: No Pertinent History Gastrointestinal: No Pertinent History Genitourinary: No Pertinent History Musculoskeletal: Orthopedic Surgery Female Surgical History: No Pertinent History Other Surgical History: right knee - Social History Smoking Status: Never smoker Exposure to second hand smoke: Yes Drug Use: none Patient Lives Alone: No - Female History Hx Last Menstrual Period: 03/11/18 Hx Now: Yes Expected Date of Delivery: 01/11/19 - Nursing Vital Signs Nursing Vital Signs: Initial Vital Signs Temperature 98.2 F 08/08/18 14:15 Pulse Rate 87 08/08/18 14:15 Respiratory Rate 18 08/08/18 14:15 Blood Pressure 129/82 08/08/18 14:15 O2 Sat by Pulse Oximetry 99 08/08/18 14:15 Pain Scale Pain Intensity 8 - Physical Exam General Appearance: no apparent distress, alert Eye Exam: PERRL/EOMI, eyes nml inspection Ears, Nose, Throat Exam: normal ENT inspection, pharynx normal, moist mucous membranes Neck Exam: normal inspection, non-tender, supple, full range of motion Respiratory Exam: normal breath sounds, lungs clear, No respiratory distress Cardiovascular Exam: regular rate/rhythm, normal heart sounds Gastrointestinal/Abdomen Exam: soft, normal bowel sounds, No tenderness Pelvic Exam: not done Rectal Exam: not done Back Exam: normal inspection, normal range of motion, No CVA tenderness, No vertebral tenderness Extremity Exam: normal inspection, normal range of motion, pelvis stable Neurologic Exam: alert, 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, cooperative, normal mood/affect, nml cerebellar function, sensation nml, No motor deficits Skin Exam: normal color, warm, dry SpO2 Interpretation: normal SpO2: 99 Oxygen Delivery: Room Air Ordered Tests: Active Orders 24 hr Category Date Time Status Clean Catch Urine Specimen STAT Care 08/08/18 14:24 Active Heart Tones-ED STAT Care 08/08/18 14:41 Active IV Insertion STAT Care 08/08/18 14:40 Active BMP Stat Lab 08/08/18 14:55 Completed CBC W DIFF Stat Lab 08/08/18 14:55 Completed CULTURE,URINE Stat Lab 08/08/18 14:25 Received UA W/RFX UR CULTURE Stat Lab 08/08/18 14:25 Completed Medication Summary Generic Name Dose Route Start Last Admin Trade Name Freq PRN Reason Stop Dose Admin Sodium Chloride 1,000 mls @ 999 mls/hr 08/08/18 14:40 08/08/18 14:45 Sodium Chloride 0.9% 1000 Ml IV 08/08/18 15:40 999 mls/hr .Q1H1M STA Administration Discontinued Medications Generic Name Dose Route Start Last Admin Trade Name Freq PRN Reason Stop Dose Admin Sodium Chloride Confirm 08/08/18 14:44 Sodium Chloride 0.9% 1000 Ml Administered 08/08/18 14:45 Dose 1,000 mls @ ud .ROUTE .STK-MED ONE Promethazine HCl 12.5 mg 08/08/18 14:40 08/08/18 14:46 Phenergan 25 Mg Inj IV 08/08/18 14:41 12.5 mg STAT ONE Administration Promethazine HCl Confirm 08/08/18 14:43 Phenergan 25 Mg Inj Administered 08/08/18 14:44 Dose 25 mg .ROUTE .STK-MED ONE Lab/Rad Data: Laboratory Result Diagrams 08/08/18 14:55 08/08/18 14:55 Laboratory Results 08/08/18 08/08/18 08/08/18 Range/Units 14:55 14:55 14:25 WBC 13.7 H (4.0-10.5) K/mm3 RBC 4.07 L (4.1-5.4) M/mm3 Hgb 12.7 (12.0-16.0) gm/dl Hct 37.0 (35-47) % MCV 90.9 (78-100) fl MCH 31.2 (26-32) pg MCHC 34.3 (32-36) g/dl RDW 13.2 (11.5-14.0) % Plt Count 273 (150-450) K/mm3 MPV 10.4 H (6-9.5) fl Gran % 78.8 H (36.0-66.0) % Eos # (Auto) 0.06 (0-0.5) Absolute Lymphs (auto) 1.80 (1.0-4.6) Absolute Monos (auto) 1.02 (0.0-1.3) Lymphocytes % 13.2 L (24.0-44.0) % Monocytes % 7.5 (0.0-12.0) % Eosinophils % 0.4 (0.00-5.0) % Basophils % 0.1 (0.0-0.4) % Absolute Granulocytes 10.76 H (1.4-6.9) Basophils # 0.02 (0-0.4) Sodium 139 (137-145) mmol/L Potassium 3.8 (3.5-5.1) mmol/L Chloride 106 (98-107) mmol/L Carbon Dioxide 21 L (22-30) mmol/L Anion Gap 15.8 H (5-15) MEQ/L BUN 5 L (7-17) mg/dL Creatinine 0.49 L (0.52-1.04) mg/dL Estimated GFR > 60.0 ML/MIN Glucose 94 (74-106) mg/dL Calcium 9.2 (8.4-10.2) mg/dL Urine Color [place] (YELLOW) Urine Appearance CLOUDY (CLEAR) Urine pH 5.0 (5-6) Ur Specific [place] 1.016 (1.005-1.025) Urine Protein NEGATIVE (Negative) Urine Ketones SMALL (NEGATIVE) Urine Blood NEGATIVE (0-5) Pako/ul Urine Nitrite NEGATIVE (NEGATIVE) Urine Bilirubin NEGATIVE (NEGATIVE) Urine Urobilinogen 4 (0-1) mg/dL Ur Leukocyte Esterase MODERATE (NEGATIVE) Urine WBC (Auto) 16-25 (0-5) /HPF Urine RBC (Auto) 6-10 (0-2) /HPF U Epithel Cells (Auto) MANY (FEW) /HPF Urine Bacteria (Auto) MODERATE (NEGATIVE) /HPF Urine Mucus (Auto) MANY (NEGATIVE) /HPF Urine Culture Reflexed YES (NO) Urine Glucose NEGATIVE (NEGATIVE) mg/dL - Progress Progress: improved Progress Note: 08/08/18 15:18 heart tones [address] Cantor's office phone: [phone] 08/08/18 15:43 Pt given phenergan 12.5 mg and NS 1L by IV. Feeling better. No abd pain. Wants to go home and sleep. Counseled pt/family regarding: lab results, diagnosis - Departure Time of Disposition: 15:44 Departure Disposition: Home Clinical Impression: Vomiting, UTI (urinary tract infection) Condition: Stable Critical Care Time: No Referrals: LINUS SCOTT [Primary Care Provider] - Additional Instructions: You had nausea and vomiting today. You had mild abdominal pain as well. You also have a UTI. You were given Phenergan 12.5 mg and fluids by IV in the ER. You are pain free at discharge. Take Phenergan 25 mg orally as needed for nausea and vomiting. Take Macrobid 100 mg 2 times a day for 7 days for the UTI. Follow-up with a call to Dr. Cantor on Friday. Prescriptions: Promethazine HCl 25 mg [Phenergan 25 mg] 25 mg PO Q8H PRN PRN #10 tablet PRN Reason: Nausea/Vomiting Nitrofurantoin Macro 100 mg [Macrobid 100MG Capsule] 100 mg PO BID #14 capsule
[2018-08-08] MEDS ORDERED: Phenergan 25 MG INJ ONE (14:43)
[2018-08-08] MEDS ORDERED: Sodium Chloride 0.9% 1000 ML 1,000 ML ONE (14:44)
[2018-08-08 14:58] LABS: BASOPHIL % 0.1 % (0.0-0.4); Basophil (Absolute #) 0.02 (0-0.4); Eosinophil % 0.4 % (0.00-5.0); Eosinophil (Absolute #) 0.06 (0-0.5); Granulocyte Absolute (ANC) 10.76 (1.4-6.9); Granulocytes % 78.8 % (36.0-66.0); Hemoglobin 12.7 gm/dl (12.0-16.0); Lymphocytes % 13.2 % (24.0-44.0); Mean Cell Volume 90.9 fl (78-100); Mean Corpuscular Hemoglobin 31.2 pg (26-32); Mean Corpuscular Hgb Concent. 34.3 g/dl (32-36); Mean Platelet Volume 10.4 fl (6-9.5); Monocyte (Absolute #) 1.02 (0.0-1.3); Monocytes % 7.5 % (0.0-12.0); Platelet Count 273 K/mm3 (150-450); Red Blood Count 4.07 M/mm3 (4.1-5.4); Red Cell Distribution Width 13.2 % (11.5-14.0); White Blood Count 13.7 K/mm3 (4.0-10.5)
[2018-08-08 15:16] LABS: ANION GAP 15.8 MEQ/L (5-15); BLOOD UREA NITROGEN 5 mg/dL (7-17); CHLORIDE 106 mmol/L (98-107); Calcium 9.2 mg/dL (8.4-10.2); Carbon Dioxide 21 mmol/L (22-30); Creatinine 1 0.49 mg/dL (0.52-1.04); Glucose 94 mg/dL (74-106); Potassium 3.8 mmol/L (3.5-5.1); SODIUM 139 mmol/L (137-145)
[2018-08-08 16:00] VITALS: BP 124/80; PULSE 80
== END 2018-08-08 15:58 | disposition home or self-care (01) ==
LOC: ED 14:06
DX: O21.9 Vomiting of pregnancy, unspecified (principal); O23.42 Unspecified infection of urinary tract in pregnancy, second trimester; Z3A.17 17 weeks gestation of pregnancy
CPT/HCPCS: 36000; 36415; 80048; 81001; 85025; 87086; 96360; 96374; 99284; J2550

== ENCOUNTER 2018-11-19 19:26 | Emergency (ER) | payer OTHER ==
[2018-11-19] MEDS ORDERED: Sodium Chloride 0.9% 1000 ML 1,000 ML IV STA (20:06)
[2018-11-19] MEDS ORDERED: Zofran 4 MG/2 ML VIAL IV ONE (20:06)
[2018-11-19] MEDS ORDERED: Zofran 4 MG/2 ML VIAL ONE ×2 (20:11→20:25)
[2018-11-19] MEDS ORDERED: Sodium Chloride 0.9% 1000 ML 1,000 ML ONE (20:11)
--- NOTE | 2018-11-19 20:11 | ERPHSYRPT ---
- History of Present Illness Time Seen by Provider: 11/19/18 19:48 Historian: patient Exam Limitations: clinical condition Patient Subjective Stated Complaint: pt is alert and oriented. pt is ambulatory with a steady gait. pt comes in with complaints of diarrhea, vomiting, abd pain. pt is 32 weeks . pt complaint of abd pain and pressure since yesterday. pt states she's vomited x6 the last 24 hours and diarrhea everytime she gets on the toilet. pt bowel sounds present x4. pt has large abdomen. pt denies any bleeding, gushing of [place], or any abnormal discharge. pt states her urine has been slightly discolored. pt states she's also had some left flank pain, pt also states she's having difficulty urinating, and pain with urination. pt urine specimen is loretta in color. Triage Nursing Assessment: see above Physician History: PATIENT IS A -1 PARA-0, -0, 32 WEEKS GESTATION COMPLAINS OF GENERALIZED ABDOMINAL PAINS SINCE LAST NIGHT ASSOCIATED WITH LOWER ABDOMINAL PRESSURE UPON SITTING POSITION. HAS FREQUENT EPISODES OF EMESIS X 6 EPISODES AND FREQUENT WATERY DIARRHEA. DENIES FLANK PAIN, FEVER OR URINARY SYMPTOMS. Timing/Duration: yesterday Activities at Onset: none Quality: pressure Abdominal Pain Onset Location: generalized abdomen Severity of Pain-Max: moderate Severity of Pain-Current: moderate Modifying Factors: Improves With: defecating, vomiting Associated Symptoms: diarrhea, nausea, vomiting Previous symptoms: no prior history Allergies/Adverse Reactions: Sulfa (Sulfonamide Antibiotics) Allergy (Verified 08/08/18 14:27) Home Medications: Vits W-Ca,Fe,FA(<1Mg) [] 1 each PO DAILY 06/06/18 [History] Hx Tetanus, Diphtheria Vaccination/Date Given: (unk) Hx Influenza Vaccination/Date Given: Yes Hx Pneumococcal Vaccination/Date Given: No Immunizations Up to Date: Yes - Review of Systems Constitutional: No Fever, No Chills Eyes: No Symptoms Ears, Nose, & Throat: No Symptoms Respiratory: No Symptoms, No Cough, No Dyspnea Cardiac: No Symptoms, No Chest Pain, No Edema, No Syncope Abdominal/Gastrointestinal: Abdominal Pain, Nausea, Vomiting, Diarrhea Genitourinary Symptoms: No Symptoms, No Dysuria Musculoskeletal: No Symptoms, No Back Pain, No Neck Pain Skin: No Symptoms, No Rash Neurological: No Dizziness, No Focal Weakness, No Sensory Changes Psychological: No Symptoms Endocrine: No Symptoms All Other Systems: Reviewed and Negative - Past Medical History Pertinent Past Medical History: Yes Neurological History: No Pertinent History ENT History: No Pertinent History Cardiac History: No Pertinent History Respiratory History: No Pertinent History Endocrine Medical History: No Pertinent History Musculoskeletal History: No Pertinent History GI Medical History: No Pertinent History History: No Pertinent History Psycho-Social History: No Pertinent History Female Reproductive Disorders: No Pertinent History Other Medical History: reflux of kidneys - Past Surgical History Past Surgical History: Yes Neuro Surgical History: No Pertinent History Cardiac: No Pertinent History Respiratory: No Pertinent History Gastrointestinal: No Pertinent History Genitourinary: No Pertinent History Musculoskeletal: Orthopedic Surgery Female Surgical History: No Pertinent History Other Surgical History: right knee ACL - Social History Smoking Status: Never smoker Exposure to second hand smoke: Yes Drug Use: none Patient Lives Alone: Yes - Female History Hx Now: Yes Expected Date of Delivery: 12/01/18 Gestational Age: 32 3 - Nursing Vital Signs Nursing Vital Signs: Initial Vital Signs Pulse Rate 100 H 11/19/18 19:38 Respiratory Rate 18 11/19/18 19:38 Blood Pressure 129/81 11/19/18 19:38 O2 Sat by Pulse Oximetry 98 11/19/18 19:38 Pain Scale Pain Intensity 10 - Physical Exam General Appearance: no apparent distress, alert Eye Exam: PERRL/EOMI, eyes nml inspection Ears, Nose, Throat Exam: normal ENT inspection, pharynx normal, moist mucous membranes Neck Exam: normal inspection, non-tender, supple, full range of motion Respiratory Exam: normal breath sounds, lungs clear, No respiratory distress Cardiovascular Exam: regular rate/rhythm, normal heart sounds Gastrointestinal/Abdomen Exam: soft, normal bowel sounds, other ( WITH UTERUS 5 FINGERBREATHS ABOVE UMBILICUS, MODERATE SUPRAPUBIC AND PERIUMBILICAL TENDERNESS), No tenderness, No mass Back Exam: normal inspection, normal range of motion, other (THERE IS NO CVA TENDERNESS), No CVA tenderness, No vertebral tenderness Extremity Exam: normal inspection, normal range of motion, pelvis stable Neurologic Exam: alert, 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, cooperative, normal mood/affect, nml cerebellar function, sensation nml, No motor deficits Skin Exam: normal color, warm, dry SpO2 Interpretation: normal SpO2: 98 Ordered Tests: Active Orders 24 hr Category Date Time Status Heart Tones-ED STAT Care 11/19/18 20:07 Active Orthostatic Vital Signs STAT Care 11/19/18 20:06 Active AMYLASE Stat Lab 11/19/18 20:00 Completed BLOOD CULTURE Stat Lab 11/19/18 20:28 Ordered CBC W DIFF Stat Lab 11/19/18 20:00 Completed CMP Stat Lab 11/19/18 20:00 Completed CULTURE,URINE Stat Lab 11/19/18 20:00 Received Manual Differential NC Stat Lab 11/19/18 20:00 Completed UA W/RFX UR CULTURE Stat Lab 11/19/18 20:00 Completed Respiratory Nebulizer STAT RT 11/19/18 20:50 Ordered Medication Summary Generic Name Dose Route Start Last Admin Trade Name Freq PRN Reason Stop Dose Admin Sodium Chloride 1,000 mls @ 999 mls/hr 11/19/18 20:06 11/19/18 20:44 Sodium Chloride 0.9% 1000 Ml IV 11/19/18 21:06 999 mls/hr .Q1H1M STA Administration Ceftriaxone Sodium/Dextrose 1 g in 50 mls @ 100 mls/hr 11/19/18 20:28 Rocephin 1 Gm-D5w 50 Ml Bag IV 11/19/18 20:57 STAT STA Discontinued Medications Generic Name Dose Route Start Last Admin Trade Name Freq PRN Reason Stop Dose Admin Sodium Chloride Confirm 11/19/18 20:11 Sodium Chloride 0.9% 1000 Ml Administered 11/19/18 20:12 Dose 1,000 mls @ ud .ROUTE .STK-MED ONE Ceftriaxone Sodium/Dextrose Confirm 11/19/18 20:46 Rocephin 1 Gm-D5w 50 Ml Bag Administered 11/19/18 20:47 Dose 1 g in 50 mls @ ud IV .STK-MED ONE Ondansetron HCl 4 mg 11/19/18 20:06 11/19/18 20:36 Zofran 4 Mg/2 Ml Vial IV 11/19/18 20:07 4 mg STAT ONE Administration Ondansetron HCl Confirm 11/19/18 20:11 Zofran 4 Mg/2 Ml Vial Administered 11/19/18 20:12 Dose 4 mg .ROUTE .STK-MED ONE Ondansetron HCl Confirm 11/19/18 20:25 Zofran 4 Mg/2 Ml Vial Administered 11/19/18 20:26 Dose 4 mg .ROUTE .STK-MED ONE Lab/Rad Data: Laboratory Result Diagrams 11/19/18 20:00 11/19/18 20:00 Laboratory Results 11/19/18 11/19/18 11/19/18 Range/Units 20:00 20:00 20:00 WBC 10.6 H (4.0-10.5) K/mm3 RBC 4.16 (4.1-5.4) M/mm3 Hgb 12.4 (12.0-16.0) gm/dl Hct 37.7 (35-47) % MCV 90.6 (78-100) fl MCH 29.8 (26-32) pg MCHC 32.9 (32-36) g/dl RDW 12.5 (11.5-14.0) % Plt Count 259 (150-450) K/mm3 MPV 10.0 H (6-9.5) fl Absolute Granulocytes 7.61 H (1.4-6.9) Sodium 138 (137-145) mmol/L Potassium 3.5 (3.5-5.1) mmol/L Chloride 107 (98-107) mmol/L Carbon Dioxide 17 L (22-30) mmol/L Anion Gap 17.0 H (5-15) MEQ/L BUN 4 L (7-17) mg/dL Creatinine 0.53 (0.52-1.04) mg/dL Estimated GFR > 60.0 ML/MIN Glucose 98 (74-106) mg/dL Calcium 8.7 (8.4-10.2) mg/dL Total Bilirubin 0.90 (0.2-1.3) mg/dL AST 29 (14-36) U/L ALT 23 (0-35) U/L Alkaline Phosphatase 136 H (38-126) U/L Serum Total Protein 7.2 (6.3-8.2) g/dL Albumin 3.5 (3.5-5.0) g/dL Amylase 83 (30-110) U/L Urine Color [place] (YELLOW) Urine Appearance CLOUDY (CLEAR) Urine pH 6.0 (5-6) Ur Specific [place] 1.016 (1.005-1.025) Urine Protein 30 (Negative) Urine Ketones NEGATIVE (NEGATIVE) Urine Blood NEGATIVE (0-5) Pako/ul Urine Nitrite NEGATIVE (NEGATIVE) Urine Bilirubin SMALL (NEGATIVE) Urine Urobilinogen 4 (0-1) mg/dL Ur Leukocyte Esterase SMALL (NEGATIVE) Urine WBC (Auto) 6-10 (0-5) /HPF Urine RBC (Auto) 3-5 (0-2) /HPF U Epithel Cells (Auto) FEW (FEW) /HPF Urine Bacteria (Auto) MODERATE (NEGATIVE) /HPF Calcium Oxalate Crystal 11-25 (NEGATIVE) /HPF Urine Mucus (Auto) SLIGHT (NEGATIVE) /HPF Urine Culture Reflexed YES (NO) Urine Glucose NEGATIVE (NEGATIVE) mg/dL - Progress Progress Note: 11/19/18 20:32 IV NORMAL SALINE 1 LITER/HR, ZOFRAN 4MG IV AFTER 2 SETS OF BLOOD CULTURES, ROCEPHIN 1GM IVPB 11/19/18 20:33, PATIENT HAS HAD NO EVIDENCE OF NAUSEA, DRY HEAVES OR EMESIS THROUGHOUT HER EMERGENCY ROOM VISIT Discussed with Dr.: Sanat (DISCUSSED WITH DR SANTA AT 2044 FOR TRANSFER TO OB FOR MONITORING AND HYDRATION) - Departure Departure Disposition: Home Clinical Impression: ACUTE EMESIS/DIARRHEA, URINARY TRACT INFECTION, , R/O PREMATURE LABOR Condition: Stable Critical Care Time: No Referrals: FINA DICKINSON [Primary Care Provider] - Additional Instructions: TRANSFER PATIENT TO LABOR AND DELIVERY DEPARTMENT FOR MONITORING AND INTRAVENOUS HYDRATION
[2018-11-19 20:13] LABS: Granulocyte Absolute (ANC) 7.61 (1.4-6.9); Hematocrit 37.7 % (35-47); Hemoglobin 12.4 gm/dl (12.0-16.0); Mean Cell Volume 90.6 fl (78-100); Mean Corpuscular Hemoglobin 29.8 pg (26-32); Mean Corpuscular Hgb Concent. 32.9 g/dl (32-36); Platelet Count 259 K/mm3 (150-450); Red Blood Count 4.16 M/mm3 (4.1-5.4); Red Cell Distribution Width 12.5 % (11.5-14.0); White Blood Count 10.6 K/mm3 (4.0-10.5)
[2018-11-19 20:17] LABS: Appearance CLOUDY (CLEAR); Bacteria MODERATE /HPF (NEGATIVE); Bilirubin SMALL (NEGATIVE); Blood NEGATIVE Ery/ul (0-5); Epithelial Cells FEW /HPF (FEW); Glucose NEGATIVE (NEGATIVE); Ketones NEGATIVE (NEGATIVE); Leukocyte Esterase SMALL (NEGATIVE); Mucus SLIGHT /HPF (NEGATIVE); Nitrite NEGATIVE (NEGATIVE); Protein,Urine Dip 30 (Negative); Specific Gravity 1.016 (1.005-1.025); Urobilinogen 4 mg/dL (0-1)
[2018-11-19 20:23] LABS: ALBUMIN 3.5 g/dL (3.5-5.0); ALKALINE PHOSPHATASE 136 U/L (38-126); AMYLASE 83 U/L (30-110); BLOOD UREA NITROGEN 4 mg/dL (7-17); CHLORIDE 107 mmol/L (98-107); Calcium 8.7 mg/dL (8.4-10.2); Carbon Dioxide 17 mmol/L (22-30); Creatinine 1 0.53 mg/dL (0.52-1.04); Glucose 98 mg/dL (74-106); Potassium 3.5 mmol/L (3.5-5.1); SGOT/AST 29 U/L (14-36); SGPT/ALT 23 U/L (0-35); SODIUM 138 mmol/L (137-145); Total Protein 7.2 g/dL (6.3-8.2)
[2018-11-19] MEDS ORDERED: ROCEPHIN 1 Gm-D5w 50 ml Bag** 1 G/50 ML IVPB IV STA (20:28)
[2018-11-19] MEDS ORDERED: ROCEPHIN 1 Gm-D5w 50 ml Bag** 1 G/50 ML IVPB IV ONE (20:46)
[2018-11-19 21:40] LABS: Eosinophil 2 % (0.00-3.0); Lymphocytes 13 % (24-44); Monocyte 9 % (0.0-12.0); Neutrophils 76 % (36.0-66.0); Platelet Estimate NORMAL (NORMAL); Total Cells Counted 100
[2018-11-19 21:47] LABS: INFLUENZA A NEGATIVE (NEGATIVE); INFLUENZA B NEGATIVE (NEGATIVE); RESPIRATORY SYNCTIAL VIRUS NEGATIVE (Negative)
[2018-11-19 22:00] VITALS: BP 98/80; PULSE 92; O2SAT 100
[2018-11-19 23:11] LABS: Adenovirus F 40/41 NEGATIVE (NEGATIVE); Astrovirus POSITIVE (NEGATIVE); C. Difficile Organism NEGATIVE (NEGATIVE); Campylobacter NEGATIVE (NEGATIVE); Cyclospora cayentanensis NEGATIVE (NEGATIVE); Entamoeaba histolytica NEGATIVE (NEGATIVE); Enteroaggregative E.coli NEGATIVE (NEGATIVE); Giardia lamblia NEGATIVE (NEGATIVE); Rotavirus A NEGATIVE (NEGATIVE); Salmonella NEGATIVE (NEGATIVE); Sapovirus NEGATIVE (NEGATIVE); Shiga-like toxin prod.E.coli NEGATIVE (NEGATIVE); Vibrio NEGATIVE (NEGATIVE)
== END 2018-11-19 22:19 | disposition critical access hospital (66) ==
LOC: ED 19:26
DX: R11.10 Vomiting, unspecified (principal); R19.7 Diarrhea, unspecified; N39.0 Urinary tract infection, site not specified; Z33.1 Pregnant state, incidental; Z3A.38 38 weeks gestation of pregnancy
CPT/HCPCS: 36415; 80053; 81001; 82150; 85025; 87040; 87086; 87507; 87631; 96360; 96365; 96374; 99284; J0696; J2405

== ENCOUNTER 2018-11-19 21:56 | Observation (INO) | payer OTHER ==
[2018-11-19 23:13] VITALS: PULSE 88
[2018-11-20 03:53] VITALS: BP 123/70; O2SAT 100
== END 2018-11-19 23:55 | disposition home or self-care (01) ==
LOC: UNDOADMOB 21:56 → MED SURG 21:56 → OB 21:56 → UNDODISOB 23:55
PROVIDERS: ADMIT Family Medicine; ATTEND Family Medicine
DX: Z34.03 Encounter for supervision of normal first pregnancy, third trimester (principal)
CPT/HCPCS: 36415; 80053; 81001; 82150; 85025; 87040; 87086; 87507; 87631; 96360; 96365; 96374; 99284; G0378; J0696; J2405

== ENCOUNTER 2019-01-09 00:04 | Emergency (ER) | payer OTHER ==
[2019-01-09] MEDS ORDERED: Sodium Chloride 0.9% 1000 ML 1,000 ML IV STA (00:35)
[2019-01-09] MEDS ORDERED: Sodium Chloride 0.9% 1000 ML 1,000 ML ONE (00:41)
[2019-01-09 01:21] LABS: Granulocyte Absolute (ANC) 10.22 (1.4-6.9); Hematocrit 21.7 % (35-47); Mean Cell Volume 90.8 fl (78-100); Mean Corpuscular Hgb Concent. 32.3 g/dl (32-36); Mean Platelet Volume 9.7 fl (6-9.5); Platelet Count 334 K/mm3 (150-450); Red Blood Count 2.39 M/mm3 (4.1-5.4); Red Cell Distribution Width 12.9 % (11.5-14.0); White Blood Count 15.2 K/mm3 (4.0-10.5)
[2019-01-09 01:26] LABS: Mean Corpuscular Hemoglobin 29.2 pg (26-32)
[2019-01-09 01:31] LABS: INR 0.99 (0.8-3.0); PROTIME 11.5 SECONDS (9.95-12.35)
[2019-01-09 01:35] LABS: ANION GAP 12.9 MEQ/L (5-15); BLOOD UREA NITROGEN 6 mg/dL (7-17); CHLORIDE 106 mmol/L (98-107); Calcium 8.2 mg/dL (8.4-10.2); Carbon Dioxide 22 mmol/L (22-30); Creatinine 1 0.56 mg/dL (0.52-1.04); Glucose 89 mg/dL (74-106); Potassium 3.5 mmol/L (3.5-5.1); SODIUM 138 mmol/L (137-145)
--- NOTE | 2019-01-09 02:18 | ERPHSYRPT ---
- History of Present Illness Time Seen by Provider: 01/09/19 00:35 Source: patient Exam Limitations: clinical condition Patient Subjective Stated Complaint: pt is alert and oriented. pt is ambulatory with a steady gait. pt comes in after delivering a baby on Friday. pt states she has been passing some large clots today. pt pad is partially saturated with red blood. pt states she has been soaking through some pads but not in excess of 1 per hour. pt fundus is firm. pt skin is pale warm and dry. pt has some dependent edema. Triage Nursing Assessment: see above Physician History: PATIENT IS POST SPONTANEOUS VAGINAL DELIVERY ON 01/05/2019 COMPLAINS OF HEAVY VAGINAL BLEEDING SINCE DELIVERY, PASSING LARGE CLOTS. HAS ASSOCIATED GENERALIZED WEAKNESS. DENIES ABDOMINAL PAIN OR FEVER. HAS USED 5 VAGINAL PADS TODAY HEAVY SATURATED. Timing/Duration: day(s) Activites at Onset: none Pain Radiation: none Severity of Pain-Max: none Severity of Pain-Current: none Prior abdominal problems: none Sexual intercourse history: non-contributory Modifying Factors: Improves With: nothing Associated Symptoms: denies symptoms Allergies/Adverse Reactions: Cutten And Derivatives Allergy (Verified 11/19/18 22:37) strawberry Allergy (Verified 11/19/18 22:37) Sulfa (Sulfonamide Antibiotics) Allergy (Verified 11/19/18 22:37) Home Medications: Vits W-Ca,Fe,FA(<1Mg) [] 1 each PO DAILY 06/06/18 [History] Hx Tetanus, Diphtheria Vaccination/Date Given: Yes (01/07/19) Hx Influenza Vaccination/Date Given: Yes Hx Pneumococcal Vaccination/Date Given: No - Review of Systems Constitutional: No Fever, No Chills Eyes: No Symptoms Ears, Nose, & Throat: No Symptoms Respiratory: No Symptoms, No Cough, No Dyspnea Cardiac: No Symptoms, No Chest Pain, No Edema, No Syncope Abdominal/Gastrointestinal: No Symptoms, No Abdominal Pain, No Nausea, No Vomiting, No Diarrhea Genitourinary Symptoms: Vaginal Bleeding, No Dysuria Musculoskeletal: No Symptoms, No Back Pain, No Neck Pain Skin: No Rash Neurological: No Dizziness, No Focal Weakness, No Sensory Changes Psychological: No Symptoms Endocrine: No Symptoms All Other Systems: Reviewed and Negative - Past Medical History Pertinent Past Medical History: Yes Neurological History: No Pertinent History ENT History: No Pertinent History Cardiac History: No Pertinent History Respiratory History: No Pertinent History Endocrine Medical History: No Pertinent History Musculoskeletal History: No Pertinent History GI Medical History: No Pertinent History History: No Pertinent History Psycho-Social History: No Pertinent History Female Reproductive Disorders: No Pertinent History Other Medical History: reflux of kidneys - Past Surgical History Past Surgical History: Yes Neuro Surgical History: No Pertinent History Cardiac: No Pertinent History Respiratory: No Pertinent History Gastrointestinal: No Pertinent History Genitourinary: No Pertinent History Musculoskeletal: Orthopedic Surgery Female Surgical History: No Pertinent History Other Surgical History: right knee ACL - Social History Smoking Status: Never smoker Exposure to second hand smoke: Yes Drug Use: none Patient Lives Alone: Yes - Female History Hx Now: No - Nursing Vital Signs Nursing Vital Signs: Initial Vital Signs Pulse Rate 103 H 01/09/19 00:26 Respiratory Rate 18 01/09/19 00:26 Blood Pressure 135/90 01/09/19 00:26 O2 Sat by Pulse Oximetry 99 01/09/19 00:26 Pain Scale Pain Intensity 10 - Physical Exam General Appearance: no apparent distress, alert Eye Exam: PERRL/EOMI, eyes nml inspection Ears, Nose, Throat Exam: normal ENT inspection, TMs normal, pharynx normal, moist mucous membranes Neck Exam: normal inspection, non-tender, supple, full range of motion Respiratory Exam: normal breath sounds, lungs clear, No respiratory distress Cardiovascular Exam: regular rate/rhythm, normal heart sounds, normal peripheral pulses Gastrointestinal/Abdomen Exam: soft, normal bowel sounds (NONTENDER), No tenderness, No mass Pelvic Exam: normal external exam, vaginal bleeding, other (MODERATE VAGINAL BLEEDING, UNABLE TO USE SPECULUM DUE VAGINAL STITCHES) Back Exam: normal inspection, normal range of motion, No CVA tenderness, No vertebral tenderness Extremity Exam: normal inspection, normal range of motion, pelvis stable Neurologic Exam: alert, 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, cooperative, 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 tested, normal mood/affect, sensation nml, No motor deficits Skin Exam: normal color, warm, dry Lymphatic Exam: No adenopathy SpO2 Interpretation: normal SpO2: 100 Ordered Tests: Active Orders 24 hr Category Date Time Status Orthostatic Vital Signs STAT Care 01/09/19 00:35 Active BMP Stat Lab 01/09/19 01:17 Completed CBC W DIFF Stat Lab 01/09/19 01:17 Completed Manual Differential NC Stat Lab 01/09/19 01:17 Completed PROTIME WITH INR Stat Lab 01/09/19 01:17 Completed UA W/RFX UR CULTURE Stat Lab 01/09/19 00:35 Ordered Medication Summary Discontinued Medications Generic Name Dose Route Start Last Admin Trade Name Constantin PRN Reason Stop Dose Admin Sodium Chloride 1,000 mls @ 999 mls/hr 01/09/19 00:35 01/09/19 01:32 Sodium Chloride 0.9% 1000 Ml IV 01/09/19 01:35 999 mls/hr .Q1H1M STA Administration Sodium Chloride Confirm 01/09/19 00:41 Sodium Chloride 0.9% 1000 Ml Administered 01/09/19 00:42 Dose 1,000 mls @ ud .ROUTE .STK-MED ONE Lab/Rad Data: Laboratory Result Diagrams 01/09/19 01:17 01/09/19 01:17 Laboratory Results 01/09/19 01/09/19 01/09/19 Range/Units 01:17 01:17 01:17 WBC 15.2 H (4.0-10.5) K/mm3 RBC 2.39 L (4.1-5.4) M/mm3 Hgb 7.0 L (12.0-16.0) gm/dl Hct 21.7 L (35-47) % MCV 90.8 (78-100) fl MCH 29.2 (26-32) pg MCHC 32.3 (32-36) g/dl RDW 12.9 (11.5-14.0) % Plt Count 334 (150-450) K/mm3 MPV 9.7 H (6-9.5) fl Absolute Granulocytes 10.22 H (1.4-6.9) PT 11.5 (9.95-12.35) SECONDS INR 0.99 (0.8-3.0) Sodium 138 (137-145) mmol/L Potassium 3.5 (3.5-5.1) mmol/L Chloride 106 (98-107) mmol/L Carbon Dioxide 22 (22-30) mmol/L Anion Gap 12.9 (5-15) MEQ/L BUN 6 L (7-17) mg/dL Creatinine 0.56 (0.52-1.04) mg/dL Estimated GFR > 60.0 ML/MIN Glucose 89 (74-106) mg/dL Calcium 8.2 L (8.4-10.2) mg/dL - Progress Progress Note: 01/09/19 02:26 IV NORMAL SALINE 1 LITER/HR, PATIENT TYPE AND CROSS FOR 2 UNITS OF PACKED RED BLOOD CELLS. 01/09/19 02:28 HGB- 7,HCT-21.7 01/09/19 02:30, VITAL SIGNS REMAIN STABLE P-103, BP 122/[address] Caputo (DISCUSSED WITH DR CAPUTO AT 0216 FOR OBSERVATION) - Departure Departure Disposition: Observation Clinical Impression: POST VAGINAL BLEEDING Condition: Stable Critical Care Time: No Referrals: FINA DICKINSON [Primary Care Provider] -
[2019-01-09 02:28] LABS: ABO TYPING B; RH TYPING NEGATIVE
[2019-01-09 02:31] LABS: Antibody Screen POSITIVE (NEGATIVE)
[2019-01-09 02:44] LABS: Appearance SLIGHTLY CLOUDY (CLEAR); Bacteria RARE /HPF (NEGATIVE); Bilirubin NEGATIVE (NEGATIVE); Blood LARGE Ery/ul (0-5); Epithelial Cells RARE /HPF (FEW); Glucose NEGATIVE (NEGATIVE); Ketones NEGATIVE (NEGATIVE); Leukocyte Esterase LARGE (NEGATIVE); Mucus SLIGHT /HPF (NEGATIVE); Nitrite NEGATIVE (NEGATIVE); Protein,Urine Dip 30 (Negative); Specific Gravity 1.008 (1.005-1.025); Urobilinogen NEGATIVE mg/dL (0-1); WBC >100 /HPF (0-5)
[2019-01-09 02:45] LABS: RBC >101 /HPF (0-2)
[2019-01-09] MEDS ORDERED: ROCEPHIN 1 Gm-D5w 50 ml Bag** 1 G/50 ML IVPB IV STA (03:07)
[2019-01-09 03:26] LABS: BAND 3 % (0.0-2.0); Eosinophil 2 % (0.00-3.0); Lymphocytes 12 % (24-44); Monocyte 4 % (0.0-12.0); Neutrophils 79 % (36.0-66.0); Platelet Estimate NORMAL (NORMAL); Total Cells Counted 100
[2019-01-09 04:53] VITALS: BP 100/57; PULSE 89; O2SAT 97
== END 2019-01-09 05:20 | disposition short-term general hospital (02) ==
LOC: ED 00:04
DX: O72.1 Other immediate postpartum hemorrhage (principal); D64.9 Anemia, unspecified
CPT/HCPCS: 36415; 80048; 81001; 85025; 85610; 86850; 86900; 86901; 87040; 87086; 99284; 99285; J0696

== ENCOUNTER 2019-02-18 12:45 | Emergency (ER) | payer OTHER ==
[2019-02-18] MEDS ORDERED: Zofran 4 MG/2 ML VIAL IV ONE (13:03)
[2019-02-18] MEDS ORDERED: Sodium Chloride 0.9% 1000 ML 1,000 ML IV STA (13:03)
[2019-02-18] MEDS ORDERED: Sodium Chloride 0.9% 1000 ML 1,000 ML ONE (13:09)
[2019-02-18] MEDS ORDERED: Zofran 4 MG/2 ML VIAL ONE (13:09)
[2019-02-18 13:22] LABS: BASOPHIL % 0.1 % (0.0-0.4); Basophil (Absolute #) 0.02 (0-0.4); Eosinophil (Absolute #) 0.01 (0-0.5); Granulocyte Absolute (ANC) 19.26 (1.4-6.9); Granulocytes % 91.9 % (36.0-66.0); Hematocrit 40.1 % (35-47); Hemoglobin 13.2 gm/dl (12.0-16.0); Lymphocyte (Absolute #) 0.93 (1.0-4.6); Lymphocytes % 4.4 % (24.0-44.0); Mean Corpuscular Hgb Concent. 32.9 g/dl (32-36); Mean Platelet Volume 9.5 fl (6-9.5); Monocyte (Absolute #) 0.75 (0.0-1.3); Monocytes % 3.6 % (0.0-12.0); Platelet Count 276 K/mm3 (150-450); Red Blood Count 4.72 M/mm3 (4.1-5.4); Red Cell Distribution Width 13.8 % (11.5-14.0)
[2019-02-18 13:25] LABS: Appearance SLIGHTLY CLOUDY (CLEAR); Bacteria FEW /HPF (NEGATIVE); Bilirubin NEGATIVE (NEGATIVE); Blood SMALL Ery/ul (0-5); Epithelial Cells FEW /HPF (FEW); Glucose NEGATIVE (NEGATIVE); Ketones NEGATIVE (NEGATIVE); Leukocyte Esterase LARGE (NEGATIVE); Mucus SLIGHT /HPF (NEGATIVE); Nitrite NEGATIVE (NEGATIVE); Protein,Urine Dip NEGATIVE (Negative); RBC 0-2 /HPF (0-2); Specific Gravity 1.017 (1.005-1.025); Urobilinogen NEGATIVE mg/dL (0-1)
[2019-02-18] MEDS ORDERED: ROCEPHIN 2 Gm-D5w 50ML BAG** 2 G/50 ML IVPB IV STA (13:39)
[2019-02-18] MEDS ORDERED: ROCEPHIN 1 Gm-D5w 50 ml Bag** 0 G/0 ML IVPB IV ONE (13:57)
[2019-02-18] MEDS ORDERED: ROCEPHIN 2 Gm-D5w 50ML BAG** 2 G/50 ML IVPB IV ONE (13:58)
[2019-02-18 14:05] LABS: ALBUMIN 4.3 g/dL (3.5-5.0); ALKALINE PHOSPHATASE 120 U/L (38-126); ANION GAP 15.2 MEQ/L (5-15); BLOOD UREA NITROGEN 14 mg/dL (7-17); CHLORIDE 104 mmol/L (98-107); Calcium 9.3 mg/dL (8.4-10.2); Carbon Dioxide 20 mmol/L (22-30); Glucose 111 mg/dL (74-106); Potassium 4.4 mmol/L (3.5-5.1); SGOT/AST 25 U/L (14-36); SGPT/ALT 24 U/L (0-35); SODIUM 135 mmol/L (137-145); Total Protein 8.2 g/dL (6.3-8.2)
[2019-02-18] MEDS ORDERED: TORAdol 30 mg Injection IV ONE (14:43)
[2019-02-18] MEDS ORDERED: TORAdol 30 mg Injection ONE (14:57)
--- NOTE | 2019-02-18 16:22 | ERPHSYRPT ---
- History of Present Illness Historian: patient Exam Limitations: no limitations Patient Subjective Stated Complaint: pt here fro vomiting and loose stools since last night after eating [place]. no fever, she also so headache Triage Nursing Assessment: pt alert walked in, resp easy, skin w/d/p, abd soft Physician History: Pt is a 23 y/o female that presented to the ED with complains of N/V/D. Pt states, yesterday she ate in [place], and she then developed nausea and vomiting, and was just able to drink some water. She did have diarrhea, but her abdominal pain did resolve. Pt denied F/C/S. No cough or SOB. No palpitations. No dysuria, frequency and urgency. Timing/Duration: yesterday Activities at Onset: none Severity of Pain-Max: none Severity of Pain-Current: none Modifying Factors: Improves With: eating Associated Symptoms: diarrhea, nausea, vomiting Previous symptoms: no prior history Allergies/Adverse Reactions: [place] And Derivatives Allergy (Verified 02/18/19 13:00) strawberry Allergy (Verified 02/18/19 13:00) Sulfa (Sulfonamide Antibiotics) Allergy (Verified 02/18/19 13:00) Home Medications: Vits W-Ca,Fe,FA(<1Mg) [] 1 each PO DAILY 06/06/18 [History] Hx Tetanus, Diphtheria Vaccination/Date Given: Yes (01/07/19) Hx Influenza Vaccination/Date Given: Yes Hx Pneumococcal Vaccination/Date Given: No Immunizations Up to Date: Yes - Review of Systems Constitutional: Malaise Eyes: No Symptoms Ears, Nose, & Throat: No Symptoms Respiratory: No Cough, No Dyspnea Cardiac: No Chest Pain, No Edema, No Syncope Abdominal/Gastrointestinal: Nausea, Vomiting, Diarrhea Genitourinary Symptoms: No Dysuria Musculoskeletal: No Back Pain, No Neck Pain Neurological: Headache, No Dizziness, No Focal Weakness, No Sensory Changes - Past Medical History Pertinent Past Medical History: Yes Neurological History: No Pertinent History ENT History: No Pertinent History Cardiac History: No Pertinent History Respiratory History: No Pertinent History Endocrine Medical History: No Pertinent History Musculoskeletal History: No Pertinent History GI Medical History: No Pertinent History History: No Pertinent History Psycho-Social History: No Pertinent History Female Reproductive Disorders: No Pertinent History Other Medical History: reflux of kidneys - Past Surgical History Past Surgical History: Yes Neuro Surgical History: No Pertinent History Cardiac: No Pertinent History Respiratory: No Pertinent History Gastrointestinal: No Pertinent History Genitourinary: No Pertinent History Musculoskeletal: Orthopedic Surgery Female Surgical History: No Pertinent History Other Surgical History: right knee ACL - Social History Smoking Status: Never smoker Exposure to second hand smoke: Yes Drug Use: none Patient Lives Alone: No - Female History Hx Last Menstrual Period: 9 months ago Hx Now: No - Nursing Vital Signs Nursing Vital Signs: Initial Vital Signs Temperature 97.8 F 02/18/19 12:48 Pulse Rate 110 H 02/18/19 12:48 Respiratory Rate 18 02/18/19 12:48 Blood Pressure 111/69 02/18/19 12:48 O2 Sat by Pulse Oximetry 98 02/18/19 12:48 Pain Scale Pain Intensity 9 - Physical Exam General Appearance: mild distress Eye Exam: PERRL/EOMI, eyes nml inspection Ears, Nose, Throat Exam: normal ENT inspection, pharynx normal, moist mucous membranes Neck Exam: normal inspection, non-tender, supple, full range of motion Respiratory Exam: normal breath sounds, lungs clear, No respiratory distress Cardiovascular Exam: regular rate/rhythm, normal heart sounds Gastrointestinal/Abdomen Exam: soft, No tenderness, No mass Back Exam: normal inspection, normal range of motion, No CVA tenderness, No vertebral tenderness Extremity Exam: normal inspection, normal range of motion, pelvis stable Neurologic Exam: alert, 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, cooperative, normal mood/affect, nml cerebellar function, sensation nml, No motor deficits SpO2: 98 - Course Nursing assessment & vital signs reviewed: Yes Ordered Tests: Active Orders 24 hr Category Date Time Status IV Insertion STAT Care 02/18/19 13:03 Active BLOOD CULTURE Stat Lab 02/18/19 14:10 Received CBC W DIFF Stat Lab 02/18/19 13:15 Completed CMP Stat Lab 02/18/19 13:15 Completed CULTURE,URINE Stat Lab 02/18/19 13:15 Received HCG,QUALITATIVE URINE Stat Lab 02/18/19 13:15 Completed LIPASE Stat Lab 02/18/19 13:15 Completed Lactic Acid Stat Lab 02/18/19 13:21 Completed UA W/RFX UR CULTURE Stat Lab 02/18/19 13:15 Completed Medication Summary Discontinued Medications Generic Name Dose Route Start Last Admin Trade Name Freq PRN Reason Stop Dose Admin Sodium Chloride 1,000 mls @ 999 mls/hr 02/18/19 13:03 02/18/19 14:29 Sodium Chloride 0.9% 1000 Ml IV 02/18/19 14:03 Infused .Q1H1M STA Infusion Sodium Chloride Confirm 02/18/19 13:09 Sodium Chloride 0.9% 1000 Ml Administered 02/18/19 13:10 Dose 1,000 mls @ ud .ROUTE .STK-MED ONE Ceftriaxone Sodium/Dextrose 2 g in 50 mls @ 100 mls/hr 02/18/19 13:39 14:29 Rocephin 2 Gm-D5w 50ml Bag IV 02/18/19 14:08 Infused STAT STA Infusion Ceftriaxone Sodium/Dextrose Confirm 02/18/19 13:57 Rocephin 1 Gm-D5w 50 Ml Bag Administered 02/18/19 13:58 Dose 1 g in 50 mls @ ud IV .STK-MED ONE Ceftriaxone Sodium/Dextrose Confirm 02/18/19 13:58 Rocephin 2 Gm-D5w 50ml Bag Administered 02/18/19 13:59 Dose 2 g in 50 mls @ ud IV .STK-MED ONE Ketorolac Tromethamine 30 mg 02/18/19 14:43 02/18/19 14:57 Toradol 30 Mg Injection IV 02/18/19 14:44 30 mg STAT ONE Administration Ketorolac Tromethamine Confirm 02/18/19 14:57 Toradol 30 Mg Injection Administered 02/18/19 14:58 Dose 30 mg .ROUTE .STK-MED ONE Ondansetron HCl 4 mg 02/18/19 13:03 02/18/19 13:11 Zofran 4 Mg/2 Ml Vial IV 02/18/19 13:04 4 mg STAT ONE Administration Ondansetron HCl Confirm 02/18/19 13:09 Zofran 4 Mg/2 Ml Vial Administered 02/18/19 13:10 Dose 4 mg .ROUTE .STK-MED ONE Lab/Rad Data: Laboratory Result Diagrams 02/18/19 13:15 02/18/19 13:15 Laboratory Results 02/18/19 02/18/19 02/18/19 Range/Units 13:21 13:15 13:15 WBC (4.0-10.5) K/mm3 RBC (4.1-5.4) M/mm3 Hgb (12.0-16.0) gm/dl Hct (35-47) % MCV (78-100) fl MCH (26-32) pg MCHC (32-36) g/dl RDW (11.5-14.0) % Plt Count (150-450) K/mm3 MPV (6-9.5) fl Gran % (36.0-66.0) % Eos # (Auto) (0-0.5) Absolute Lymphs (auto) (1.0-4.6) Absolute Monos (auto) (0.0-1.3) Lymphocytes % (24.0-44.0) % Monocytes % (0.0-12.0) % Eosinophils % (0.00-5.0) % Basophils % (0.0-0.4) % Absolute Granulocytes (1.4-6.9) Basophils # (0-0.4) Sodium (137-145) mmol/L Potassium (3.5-5.1) mmol/L Chloride (98-107) mmol/L Carbon Dioxide (22-30) mmol/L Anion Gap (5-15) MEQ/L BUN (7-17) mg/dL Creatinine (0.52-1.04) mg/dL Estimated GFR ML/MIN Glucose (74-106) mg/dL Lactic Acid 1.3 (0.4-2.0) Calcium (8.4-10.2) mg/dL Total Bilirubin (0.2-1.3) mg/dL AST (14-36) U/L ALT (0-35) U/L Alkaline Phosphatase (38-126) U/L Serum Total Protein (6.3-8.2) g/dL Albumin (3.5-5.0) g/dL Lipase (23-300) U/L Urine Color YELLOW (YELLOW) Urine Appearance SLIGHTLY CLOUDY (CLEAR) Urine pH 5.0 (5-6) Ur Specific [place] 1.017 (1.005-1.025) Urine Protein NEGATIVE (Negative) Urine Ketones NEGATIVE (NEGATIVE) Urine Blood SMALL (0-5) Pako/ul Urine Nitrite NEGATIVE (NEGATIVE) Urine Bilirubin NEGATIVE (NEGATIVE) Urine Urobilinogen NEGATIVE (0-1) mg/dL Ur Leukocyte Esterase LARGE (NEGATIVE) Urine WBC (Auto) 11-15 (0-5) /HPF Urine RBC (Auto) 0-2 (0-2) /HPF U Epithel Cells (Auto) FEW (FEW) /HPF Urine Bacteria (Auto) FEW (NEGATIVE) /HPF Urine Mucus (Auto) SLIGHT (NEGATIVE) /HPF Urine Culture Reflexed YES (NO) Urine Glucose NEGATIVE (NEGATIVE) mg/dL Urine HCG, Qual NEGATIVE (Negative) 02/18/19 02/18/19 Range/Units 13:15 13:15 WBC 21.0 H (4.0-10.5) K/mm3 RBC 4.72 (4.1-5.4) M/mm3 Hgb 13.2 (12.0-16.0) gm/dl Hct 40.1 (35-47) % MCV 85.0 (78-100) fl MCH 28.0 (26-32) pg MCHC 32.9 (32-36) g/dl RDW 13.8 (11.5-14.0) % Plt Count 276 (150-450) K/mm3 MPV 9.5 (6-9.5) fl Gran % 91.9 H (36.0-66.0) % Eos # (Auto) 0.01 (0-0.5) Absolute Lymphs (auto) 0.93 L (1.0-4.6) Absolute Monos (auto) 0.75 (0.0-1.3) Lymphocytes % 4.4 L (24.0-44.0) % Monocytes % 3.6 (0.0-12.0) % Eosinophils % 0.0 (0.00-5.0) % Basophils % 0.1 (0.0-0.4) % Absolute Granulocytes 19.26 H (1.4-6.9) Basophils # 0.02 (0-0.4) Sodium 135 L (137-145) mmol/L Potassium 4.4 (3.5-5.1) mmol/L Chloride 104 (98-107) mmol/L Carbon Dioxide 20 L (22-30) mmol/L Anion Gap 15.2 H (5-15) MEQ/L BUN 14 (7-17) mg/dL Creatinine 0.80 (0.52-1.04) mg/dL Estimated GFR > 60.0 ML/MIN Glucose 111 H (74-106) mg/dL Lactic Acid (0.4-2.0) Calcium 9.3 (8.4-10.2) mg/dL Total Bilirubin 0.70 (0.2-1.3) mg/dL AST 25 (14-36) U/L ALT 24 (0-35) U/L Alkaline Phosphatase 120 (38-126) U/L Serum Total Protein 8.2 (6.3-8.2) g/dL Albumin 4.3 (3.5-5.0) g/dL Lipase 98 (23-300) U/L Urine Color (YELLOW) Urine Appearance (CLEAR) Urine pH (5-6) Ur Specific [place] (1.005-1.025) Urine Protein (Negative) Urine Ketones (NEGATIVE) Urine Blood (0-5) Pako/ul Urine Nitrite (NEGATIVE) Urine Bilirubin (NEGATIVE) Urine Urobilinogen (0-1) mg/dL Ur Leukocyte Esterase (NEGATIVE) Urine WBC (Auto) (0-5) /HPF Urine RBC (Auto) (0-2) /HPF U Epithel Cells (Auto) (FEW) /HPF Urine Bacteria (Auto) (NEGATIVE) /HPF Urine Mucus (Auto) (NEGATIVE) /HPF Urine Culture Reflexed (NO) Urine Glucose (NEGATIVE) mg/dL Urine HCG, Qual (Negative) - Progress Progress: improved Progress Note: 02/18/19 16:22 Pt was seen and examined. She had lab work done, and IVF bolus was given. Pt had elevated WBCs in the 21K, and leukocyte esterase with WBCs in the urine. Pt had blood cultures taken, and Ceftriaxone 2gr IV was given. Pt got Toradol 30mg IV for pain, and when she improved, we tried her on PO diet that she tolerated. Pt is stable for d/c. I will prescribe for her Omnicef BID, and if blood cultures are positive, we will give her a call with instructions. Discussed with : Yanet Scott Will see patient in: office Counseled pt/family regarding: need for follow-up - Departure Departure Disposition: Home Clinical Impression: UTI (urinary tract infection) Condition: Stable Critical Care Time: No Referrals: LINUS SCOTT [Primary Care Provider] - Additional Instructions: Finish Omnicef as ordered. Drink plenty of fluids and f/u with your PCP. Prescriptions: Cefdinir [Omnicef] 300 mg PO BID #14 capsule
[2019-02-18 16:28] VITALS: BP 107/56; PULSE 92; O2SAT 96
== END 2019-02-18 16:33 | disposition home or self-care (01) ==
LOC: ED 12:45
DX: N39.0 Urinary tract infection, site not specified (principal)
CPT/HCPCS: 36000; 36415; 80053; 81001; 83605; 83690; 84703; 85025; 87040; 87086; 96360; 96365; 96374; 96375; 99284; J0696; J1885; J2405

== ENCOUNTER 2020-11-05 09:39 | Emergency (ER) | payer OTHER ==
--- NOTE | 2020-11-05 10:01 | ERPHSYRPT ---
- History of Present Illness Time Seen by Provider: 11/05/20 10:00 Historian: patient Exam Limitations: no limitations Patient Subjective Stated Complaint: Pelvic pain Triage Nursing Assessment: Patient ambulated back to ED and transferred self to bed. Patient A+O X3. Patient's skin pink, warm and dry. Patient complains of waking up with severe pain in lower pelvic area constant sharp pain. Patient denies any recent trauma. Patient states she is having trouble urinating. Abdomen soft and round with BS X 4. Physician History: Patient complains of waking up with severe pain in lower pelvic area constant sharp pain. Patient denies any recent trauma. Patient states she is having trouble urinating Timing/Duration: today Activities at Onset: none Quality: cramping Abdominal Pain Onset Location: suprapubic Pain Radiation: no radiation Severity of Pain-Max: moderate Severity of Pain-Current: moderate Modifying Factors: Improves With: nothing Associated Symptoms: denies symptoms Allergies/Adverse Reactions: [place] And Derivatives Allergy (Verified 11/05/20 10:16) strawberry Allergy (Verified 11/05/20 10:16) Sulfa (Sulfonamide Antibiotics) Allergy (Verified 11/05/20 10:16) Hx Tetanus, Diphtheria Vaccination/Date Given: Yes (01/07/19) Hx Influenza Vaccination/Date Given: Yes Hx Pneumococcal Vaccination/Date Given: No Immunizations Up to Date: Yes Travel Risk - International Travel Have you traveled outside of the country in past 3 weeks: No - Coronavirus Screening Are you exhibiting any of the following symptoms?: No Close contact with a COVID-19 positive Pt in past 14-21 Days: No - Review of Systems Constitutional: No Fever, No Chills Eyes: No Symptoms Ears, Nose, & Throat: No Symptoms Respiratory: No Cough, No Dyspnea Cardiac: No Chest Pain, No Edema, No Syncope Abdominal/Gastrointestinal: Abdominal Pain, No Nausea, No Vomiting, No Diarrhea Genitourinary Symptoms: Dysuria Musculoskeletal: No Back Pain, No Neck Pain Skin: No Rash Neurological: No Dizziness, No Focal Weakness, No Sensory Changes Psychological: No Symptoms Endocrine: No Symptoms All Other Systems: Reviewed and Negative - Past Medical History Pertinent Past Medical History: Yes Neurological History: No Pertinent History ENT History: No Pertinent History Cardiac History: No Pertinent History Respiratory History: No Pertinent History Endocrine Medical History: No Pertinent History Musculoskeletal History: No Pertinent History GI Medical History: No Pertinent History History: No Pertinent History Psycho-Social History: No Pertinent History Female Reproductive Disorders: No Pertinent History Other Medical History: reflux of kidneys - Past Surgical History Past Surgical History: Yes Neuro Surgical History: No Pertinent History Cardiac: No Pertinent History Respiratory: No Pertinent History Gastrointestinal: No Pertinent History Genitourinary: No Pertinent History Musculoskeletal: Orthopedic Surgery Female Surgical History: No Pertinent History Other Surgical History: right knee ACL - Social History Smoking Status: Never smoker Exposure to second hand smoke: No Drug Use: none Patient Lives Alone: Yes - Female History Hx Last Menstrual Period: 2 weeks ago Hx Now: No - Nursing Vital Signs Nursing Vital Signs: Initial Vital Signs Temperature 98.3 F 11/05/20 09:44 Pulse Rate 88 11/05/20 09:44 Respiratory Rate 18 11/05/20 09:44 Blood Pressure 100/70 11/05/20 09:44 O2 Sat by Pulse Oximetry 97 11/05/20 09:44 Pain Scale Pain Intensity 9 - Physical Exam General Appearance: no apparent distress Eye Exam: PERRL/EOMI Ears, Nose, Throat Exam: normal ENT inspection Neck Exam: normal inspection Respiratory Exam: normal breath sounds Cardiovascular Exam: regular rate/rhythm Gastrointestinal/Abdomen Exam: soft, normal bowel sounds, tenderness (suprapubic area) SpO2: 97 - Course Nursing assessment & vital signs reviewed: Yes Ordered Tests: Active Orders 24 hr Category Date Time Status AMYLASE Stat Lab 11/05/20 10:09 Completed CBC W DIFF Stat Lab 11/05/20 10:09 Completed CMP Stat Lab 11/05/20 10:09 Completed CULTURE,URINE Stat Lab 11/05/20 10:09 Received HCG,QUALITATIVE URINE Stat Lab 11/05/20 10:09 Completed LIPASE Stat Lab 11/05/20 10:09 Completed UA W/RFX UR CULTURE Stat Lab 11/05/20 10:09 Completed Medication Summary Generic Name Dose Route Start Last Admin Trade Name Freq PRN Reason Stop Dose Admin Ceftriaxone Sodium 1,000 mg 11/05/20 11:03 Rocephin 1000 Mg Inj IM 11/05/20 11:04 STAT ONE Discontinued Medications Generic Name Dose Route Start Last Admin Trade Name Freq PRN Reason Stop Dose Admin Ceftriaxone Sodium/Dextrose Confirm 11/05/20 11:01 Rocephin 1 Gm-D5w 50 Ml Bag Administered 11/05/20 11:02 Dose 1 g in 50 mls @ ud IV .STK-MED ONE Lab/Rad Data: Laboratory Result Diagrams 11/05/20 10:09 11/05/20 10:09 Laboratory Results 11/05/20 11/05/20 11/05/20 Range/Units 10:09 10:09 10:09 WBC 8.9 (4.0-10.5) K/mm3 RBC 4.53 (4.1-5.4) M/mm3 Hgb 13.5 (12.0-16.0) gm/dl Hct 41.0 (35-47) % MCV 90.5 (78-100) fl MCH 29.8 (26-32) pg MCHC 32.9 (32-36) g/dl RDW 12.6 (11.5-14.0) % Plt Count 241 (150-450) K/mm3 MPV 10.4 (7.5-11.0) fl Gran % 66.2 H (36.0-66.0) % Eos # (Auto) 0.13 (0-0.5) Absolute Lymphs (auto) 2.11 (1.0-4.6) Absolute Monos (auto) 0.74 (0.0-1.3) Lymphocytes % 23.8 L (24.0-44.0) % Monocytes % 8.3 (0.0-12.0) % Eosinophils % 1.5 (0.00-5.0) % Basophils % 0.2 (0.0-0.4) % Absolute Granulocytes 5.87 (1.4-6.9) Basophils # 0.02 (0-0.4) Sodium 139 (137-145) mmol/L Potassium 4.3 (3.5-5.1) mmol/L Chloride 105 (98-107) mmol/L Carbon Dioxide 24 (22-30) mmol/L Anion Gap 14.5 (5-15) MEQ/L BUN 6 L (7-17) mg/dL Creatinine 0.77 (0.52-1.04) mg/dL Estimated GFR > 60.0 ML/MIN Glucose 101 (74-106) mg/dL Calcium 9.1 (8.4-10.2) mg/dL Total Bilirubin 0.30 (0.2-1.3) mg/dL AST 19 (14-36) U/L ALT 17 (0-35) U/L Alkaline Phosphatase 68 (38-126) U/L Serum Total Protein 7.1 (6.3-8.2) g/dL Albumin 3.9 (3.5-5.0) g/dL Amylase 51 (30-110) U/L Lipase 125 (23-300) U/L Urine Color (YELLOW) Urine Appearance (CLEAR) Urine pH (5-6) Ur Specific [place] (1.005-1.025) Urine Protein (Negative) Urine Ketones (NEGATIVE) Urine Blood (0-5) Pako/ul Urine Nitrite (NEGATIVE) Urine Bilirubin (NEGATIVE) Urine Urobilinogen (0-1) mg/dL Ur Leukocyte Esterase (NEGATIVE) Urine WBC (Auto) (0-5) /HPF Urine RBC (Auto) (0-2) /HPF U Epithel Cells (Auto) (FEW) /HPF Urine Bacteria (Auto) (NEGATIVE) /HPF Urine Mucus (Auto) (NEGATIVE) /HPF Urine Culture Reflexed (NO) Urine Glucose (NEGATIVE) mg/dL Urine HCG, Qual NEGATIVE (Negative) 11/05/20 Range/Units 10:09 WBC (4.0-10.5) K/mm3 RBC (4.1-5.4) M/mm3 Hgb (12.0-16.0) gm/dl Hct (35-47) % MCV (78-100) fl MCH (26-32) pg MCHC (32-36) g/dl RDW (11.5-14.0) % Plt Count (150-450) K/mm3 MPV (7.5-11.0) fl Gran % (36.0-66.0) % Eos # (Auto) (0-0.5) Absolute Lymphs (auto) (1.0-4.6) Absolute Monos (auto) (0.0-1.3) Lymphocytes % (24.0-44.0) % Monocytes % (0.0-12.0) % Eosinophils % (0.00-5.0) % Basophils % (0.0-0.4) % Absolute Granulocytes (1.4-6.9) Basophils # (0-0.4) Sodium (137-145) mmol/L Potassium (3.5-5.1) mmol/L Chloride (98-107) mmol/L Carbon Dioxide (22-30) mmol/L Anion Gap (5-15) MEQ/L BUN (7-17) mg/dL Creatinine (0.52-1.04) mg/dL Estimated GFR ML/MIN Glucose (74-106) mg/dL Calcium (8.4-10.2) mg/dL Total Bilirubin (0.2-1.3) mg/dL AST (14-36) U/L ALT (0-35) U/L Alkaline Phosphatase (38-126) U/L Serum Total Protein (6.3-8.2) g/dL Albumin (3.5-5.0) g/dL Amylase (30-110) U/L Lipase (23-300) U/L Urine Color ALEXANDER (YELLOW) Urine Appearance CLOUDY (CLEAR) Urine pH 5.0 (5-6) Ur Specific [place] 1.026 (1.005-1.025) Urine Protein 30 (Negative) Urine Ketones NEGATIVE (NEGATIVE) Urine Blood NEGATIVE (0-5) Pako/ul Urine Nitrite NEGATIVE (NEGATIVE) Urine Bilirubin NEGATIVE (NEGATIVE) Urine Urobilinogen NEGATIVE (0-1) mg/dL Ur Leukocyte Esterase LARGE (NEGATIVE) Urine WBC (Auto) 26-50 (0-5) /HPF Urine RBC (Auto) 3-5 (0-2) /HPF U Epithel Cells (Auto) PACKED (FEW) /HPF Urine Bacteria (Auto) NONE (NEGATIVE) /HPF Urine Mucus (Auto) SLIGHT (NEGATIVE) /HPF Urine Culture Reflexed YES (NO) Urine Glucose NEGATIVE (NEGATIVE) mg/dL Urine HCG, Qual (Negative) - Progress Progress: improved, pain not gone completely Counseled pt/family regarding: lab results, diagnosis, need for follow-up - Departure Departure Disposition: Home Clinical Impression: UTI (urinary tract infection) due to Enterococcus Condition: Stable Critical Care Time: No Referrals: LINUS SCOTT [Primary Care Provider] - Instructions: Urinary Tract Infection, Adult (DC) Additional Instructions: Discharge/Care Plan HERSON BERGER was seen on 11/05/20 in the Emergency Room. The patient was counseled regarding Diagnosis,Lab results, Imaging studies, need for follow up and when to return to the Emergency Room. Prescriptions given: Discharge Note I have spoken with the patient and/or caregivers. I have explained the patient's condition, diagnosis and treatment plan based on the information available to me at this time. I have answered the patient's and/or caregiver's questions and addressed any concerns. The patient and/or caregivers have as good understanding of the patient's diagnosis, condition and treatment plan as can be expected at this point. The vital signs have been stable. The patient's condition is stable and appropriate for discharge from the emergency department. The patient will pursue further outpatient evaluation with the primary care physician or other designated or consulting physician as outlined in the discharge instructions. The patient and/or caregivers are agreeable to this plan of care and follow-up instructions have been explained in detail. The patient an d/or caregivers have received these instruction. The patient/and or caregivers are aware that any significant change in condition or worsening of symptoms should prompt an immediate return to this or the closest emergency department or call 911. HERSON BERGER was seen on 11/05/20 n the Emergency Room. At that time you were treated for an emergent condition, during your visit Laboratory, Radiology and/or other procedures may have been ordered. It is very important that you follow-up with your Primary Care Physician LINUS SCOTT within the next 24-48 hours to review your Emergency Room visit and the final results of testing that was ordered. Some test results such as Urine Cultures, Blood Cultures, and other cultures if ordered will not be finalized for 24-48 hours. If you do not have a Primary Care Provider please call the medical records department at [phone] ext [phone] to obtain a copy of your results or you may sign into our patient portal to obtain these results by visiting us @ [email or web address] and completing the following steps: 1. Click on the Patient Portal link 2. Click the Patient Self Enrollment Link to complete the enrollment form and entering your 3. Once the enrollment form is completed you will receive an email with a temporary ID and password at the email address you provided. 4. Next choose a user name and password. Your user name must be at least 4 characters long and your password must be at least 4 characters long. 5. Choose a security question from the list and provide your answer to the question. If you already have signed into the Health Portal you may access your Health Care Information 03/03 by the following steps: 1. Login to our website @ [email or web address] 2. Enter your original user name and password. FAQS The [facility] Health Portal is an online tool that contains your Lab Results, Radiology Reports, Visit History, Discharge Instructions and Health Summary Lab and Radiology Results will not be available for 72 hours on the portal. The Portal is a secure site, passwords are encryted and URLs are re-written so they cannot be copied and pasted. You and authorized family members are the only ones who can access your Portal. Also there is a timeout feature that protects your information if you leave the Portal page open. If you have technical difficulty please use the Contact Us link on the page this will allow you to submit any questions you have regarding the Portal or you may contact the Medical Record Department at [phone]. Prescriptions: Ciprofloxacin [Cipro 500 MG] 500 mg PO BIDAC #10 tablet
[2020-11-05 10:39] LABS: Absolute Neutrophil Ct (ANC) 5.87 (1.4-6.9); BASOPHIL % 0.2 % (0.0-0.4); Basophil (Absolute #) 0.02 (0-0.4); Eosinophil % 1.5 % (0.00-5.0); Eosinophil (Absolute #) 0.13 (0-0.5); Hemoglobin 13.5 gm/dl (12.0-16.0); Lymphocyte (Absolute #) 2.11 (1.0-4.6); Lymphocytes % 23.8 % (24.0-44.0); Mean Cell Volume 90.5 fl (78-100); Mean Corpuscular Hemoglobin 29.8 pg (26-32); Mean Corpuscular Hgb Concent. 32.9 g/dl (32-36); Mean Platelet Volume 10.4 fl (7.5-11.0); Monocyte (Absolute #) 0.74 (0.0-1.3); Monocytes % 8.3 % (0.0-12.0); Neutrophil % 66.2 % (36.0-66.0); Platelet Count 241 K/mm3 (150-450); Red Blood Count 4.53 M/mm3 (4.1-5.4); Red Cell Distribution Width 12.6 % (11.5-14.0); White Blood Count 8.9 K/mm3 (4.0-10.5)
[2020-11-05 10:43] LABS: ALBUMIN 3.9 g/dL (3.5-5.0); ALKALINE PHOSPHATASE 68 U/L (38-126); AMYLASE 51 U/L (30-110); ANION GAP 14.5 MEQ/L (5-15); BLOOD UREA NITROGEN 6 mg/dL (7-17); CHLORIDE 105 mmol/L (98-107); Calcium 9.1 mg/dL (8.4-10.2); Carbon Dioxide 24 mmol/L (22-30); Creatinine 1 0.77 mg/dL (0.52-1.04); EST GLOMERULAR FILTRATION RATE > 60.0 ML/MIN; Glucose 101 mg/dL (74-106); LIPASE 125 U/L (23-300); Potassium 4.3 mmol/L (3.5-5.1); SGOT/AST 19 U/L (14-36); SGPT/ALT 17 U/L (0-35); SODIUM 139 mmol/L (137-145); Total Protein 7.1 g/dL (6.3-8.2)
[2020-11-05 10:49] LABS: Appearance CLOUDY (CLEAR); Bilirubin NEGATIVE (NEGATIVE); Blood NEGATIVE Ery/ul (0-5); Epithelial Cells PACKED /HPF (FEW); Glucose NEGATIVE (NEGATIVE); Ketones NEGATIVE (NEGATIVE); Leukocyte Esterase LARGE (NEGATIVE); Mucus SLIGHT /HPF (NEGATIVE); Nitrite NEGATIVE (NEGATIVE); Protein,Urine Dip 30 (Negative); Specific Gravity 1.026 (1.005-1.025); Urobilinogen NEGATIVE mg/dL (0-1); WBC 26-50 /HPF (0-5)
[2020-11-05] MEDS ORDERED: ROCEPHIN 1 Gm-D5w 50 ml Bag** 0 G/0 ML IVPB IV ONE (11:01)
[2020-11-05] MEDS ORDERED: Rocephin 1000 MG INJ ONE (11:02)
[2020-11-05] MEDS: Rocephin 1000 MG INJ IM ONE (11:04)
[2020-11-05 11:18] VITALS: BP 116/72; PULSE 82; O2SAT 98
== END 2020-11-05 11:35 | disposition home or self-care (01) ==
LOC: ED 09:39
DX: N39.0 Urinary tract infection, site not specified (principal); B95.2 Enterococcus as the cause of diseases classified elsewhere
CPT/HCPCS: 36415; 80053; 81001; 82150; 83690; 84703; 85025; 87086; 96372; 99284; J0696

== ENCOUNTER 2021-02-18 08:54 | Emergency (ER) | payer OTHER ==
[2021-02-18 09:04] VITALS: O2SAT 98
[2021-02-18] MEDS ORDERED: BENADRYL 50 MG/ML IM ONE (09:10)
[2021-02-18] MEDS ORDERED: Pepcid 20 MG PO ONE (09:10)
[2021-02-18] MEDS ORDERED: solu-MEDROL 125 MG, Sterile H2O 10 ml 2 ML IM ONE ×2 (09:10)
[2021-02-18] MEDS ORDERED: BENADRYL 50 MG/ML ONE (09:15)
[2021-02-18] MEDS ORDERED: Pepcid 20 MG ONE (09:15)
[2021-02-18] MEDS ORDERED: Sterile H2O 10 ml IJ ONE (09:16)
[2021-02-18] MEDS ORDERED: solu-MEDROL ONE (09:16)
--- NOTE | 2021-02-18 09:17 | ERPHSYRPT ---
- History of Present Illness Time Seen by Provider: 02/18/21 09:09 Source: patient Exam Limitations: no limitations Patient Subjective Stated Complaint: PT states "I am allergic to citris and I ate oranges yesterday for dinner and I woke up at 3 with a sore throat and it f eeling like it was swelling." Triage Nursing Assessment: Pt presented alert and oriented X 3, skin pwd Pt ambulates with an upright steady gait, able to speak in clear full sentences pt in no apparent respiratory distress, lung sounds clear equal bilat , throat swollen and red. Physician History: 25 years old female presented in the ER with chief complaint of sore throat sudden onset waking her up from sleep around 3 AM today. Reports difficulty swallowing liquids because of generalized redness and swelling around 4. Patient reports she is allergic to citrus and took some oranges last night and probably have allergic reaction. Does report subjective feeling of fever. Denies any difficulty breathing, swelling floor of mouth/tongue or throat closing/choking sensations. Timing/Duration: abrupt onset, this evening Severity: moderate ENT Location: throat Prearrival Treatment: no prearrival treatment Associated Symptoms: poor solids intake, sore throat, difficulty swallowing, No ear pain (R), No ear pain (L), No cough, No chills, No drooling, No ear drainage, No facial pain/swelling Allergies/Adverse Reactions: [place] And Derivatives Allergy (Verified 11/05/20 10:16) strawberry Allergy (Verified 11/05/20 10:16) Sulfa (Sulfonamide Antibiotics) Allergy (Verified 11/05/20 10:16) Hx Tetanus, Diphtheria Vaccination/Date Given: Yes Hx Influenza Vaccination/Date Given: Yes Hx Pneumococcal Vaccination/Date Given: No Immunizations Up to Date: Yes Travel Risk - International Travel Have you traveled outside of the country in past 3 weeks: No - Coronavirus Screening Are you exhibiting any of the following symptoms?: No - Vaccine Status Have you recieved a Covid-19 vaccination: No - Review of Systems Constitutional: Fever Eyes: No Symptoms Ears, Nose, & Throat: Throat Pain, Throat Swelling, Painful Swallowing Respiratory: No Symptoms Cardiac: No Symptoms Abdominal/Gastrointestinal: No Symptoms Genitourinary Symptoms: No Symptoms Musculoskeletal: No Symptoms Skin: No Symptoms Neurological: Gait Changes Psychological: No Symptoms Hematologic/Lymphatic: No Symptoms Immunological/Allergic: No Symptoms - Past Medical History Pertinent Past Medical History: Yes Neurological History: No Pertinent History ENT History: No Pertinent History Cardiac History: No Pertinent History Respiratory History: No Pertinent History Endocrine Medical History: No Pertinent History Musculoskeletal History: No Pertinent History GI Medical History: No Pertinent History History: No Pertinent History Psycho-Social History: No Pertinent History Female Reproductive Disorders: No Pertinent History Other Medical History: reflux of kidneys - Past Surgical History Past Surgical History: Yes Neuro Surgical History: No Pertinent History Cardiac: No Pertinent History Respiratory: No Pertinent History Gastrointestinal: No Pertinent History Genitourinary: No Pertinent History Musculoskeletal: Orthopedic Surgery Female Surgical History: No Pertinent History Other Surgical History: right knee ACL - Social History Smoking Status: Never smoker Exposure to second hand smoke: Yes Drug Use: none Patient Lives Alone: No - Female History Hx Last Menstrual Period: 02/08/2021 Hx Now: No - Nursing Vital Signs Nursing Vital Signs: Initial Vital Signs Temperature 98.1 F 02/18/21 08:57 Pulse Rate 61 02/18/21 08:57 Respiratory Rate 20 02/18/21 08:57 Blood Pressure 101/85 02/18/21 08:57 O2 Sat by Pulse Oximetry 98 02/18/21 08:57 Pain Scale Pain Intensity 7 - Physical Exam General Appearance: no apparent distress Eye Exam: bilateral eye: normal inspection, PERRL, EOMI Ear Exam: bilateral ear: auricle normal, canal normal, TM normal Nasal Exam: normal inspection Throat Exam: moist mucus membranes, pharynx swelling, pharynx tenderness, tonsillar exudate, tonsillar swelling, uvula swelling, No tongue swollen Neck Exam: normal inspection, non-tender, supple, full range of motion Cardiovascular/Respiratory Exam: chest non-tender, normal breath sounds Abdominal Exam: non-tender, soft, no organomegaly Neurologic Exam: alert, 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, cooperative, script 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 tested, normal mood/affect, nml cerebellar function, nml station & gait, sensation nml Skin Exam: normal color SpO2 Interpretation: normal SpO2: 98 O2 Delivery: Room Air Ordered Tests: Medication Summary Discontinued Medications Generic Name Dose Route Start Last Admin Trade Name Freq PRN Reason Stop Dose Admin Methylprednisolone Sodium 0 mg 02/18/21 09:10 02/18/21 09:17 Succinate 125 mg/ Sterile IM 02/18/21 09:11 125 mg Water 2 ml STAT ONE Administration Diphenhydramine HCl 25 mg 02/18/21 09:10 02/18/21 09:17 Benadryl 50 Mg/Ml IM 02/18/21 09:11 25 mg STAT ONE Administration Diphenhydramine HCl Confirm 02/18/21 09:15 Benadryl 50 Mg/Ml Administered 02/18/21 09:16 Dose 50 mg .ROUTE .STK-MED ONE Famotidine 20 mg 02/18/21 09:10 02/18/21 09:17 Pepcid 20 Mg PO 02/18/21 09:11 20 mg STAT ONE Administration Famotidine Confirm 02/18/21 09:15 Pepcid 20 Mg Administered 02/18/21 09:16 Dose 20 mg .ROUTE .STK-MED ONE Methylprednisolone Sodium Succinate Confirm 02/18/21 09:16 Solu-Medrol Administered 02/18/21 09:17 Dose 125 mg .ROUTE .STK-MED ONE Sterile Water Confirm 02/18/21 09:16 Sterile H2o 10 Ml Administered 02/18/21 09:17 Dose 10 ml IJ .STK-MED ONE Lab/Rad Data: Laboratory Results 02/18/21 Range/Units 09:21 Group A Strep Antibody DETECTED (NEGATIVE) - Progress Progress: improved, pain not gone completely, re-examined Progress Note: 02/18/21 10:03 She has positive strep test. She is given Solu-Medrol Benadryl/Pepcid, on reevaluation feeling better. I have also given her Augmentin. We will continue with Augmentin, short course of steroid and Benadryl/Pepcid and outpatient follow-up recommended. Counseled pt/family regarding: lab results, diagnosis, need for follow-up - Departure Departure Disposition: Home Clinical Impression: Acute pharyngitis Qualifiers: Pharyngitis/tonsillitis etiology: streptococcus Qualified Code(s): J02.0 - Streptococcal pharyngitis Allergic reaction Qualifiers: Encounter type: initial encounter Qualified Code(s): T78.40XA - Allergy, unspecified, initial encounter Condition: Stable Critical Care Time: No Referrals: LINUS SCOTT [Primary Care Provider] - (1-2 days for reevaluation) Instructions: Strep Throat (DC), Anaphylaxis (DC) Additional Instructions: Take Tylenol/ibuprofen as needed. Continue with antibiotics. Take Benadryl/Pepcid and steroids, return to ER for throat closing sensation, difficulty breathing etc. Prescriptions: Diphenhydramine HCl 25 mg [Benadryl 25 mg Capsule] 25 mg PO Q4H PRN PRN #20 capsule PRN Reason: Allergies Amoxicillin/Potassium Clav [Augmentin 875-125 Tablet] 875 mg PO BID 10 Days #20 tablet Prednisone 20 mg [Deltasone 20 mg] 60 mg PO DAILY 5 Days #15 tablet Famotidine 20 mg [Pepcid 20 MG] 20 mg PO BID #10 tablet
[2021-02-18] MEDS ORDERED: Augmentin 875-125 Tablet PO ONE (10:02)
[2021-02-18] MEDS ORDERED: Augmentin 875-125 Tablet ONE (10:10)
[2021-02-18 10:12] VITALS: BP 119/83; PULSE 104
== END 2021-02-18 10:21 | disposition home or self-care (01) ==
LOC: ED 08:54
DX: J02.0 Streptococcal pharyngitis (principal); T78.40XA Allergy, unspecified, initial encounter
CPT/HCPCS: 87651; 96372; 99284; J1200; J2930; A9270-GY

== ENCOUNTER 2023-04-08 16:57 | Emergency (ER) | payer OTHER ==
[2023-04-08 17:22] VITALS: TEMP 98.2
[2023-04-08] MEDS ORDERED: Sodium Chloride 0.9% 1000 ML 1,000 ML IV STA (17:56)
[2023-04-08] MEDS ORDERED: Sodium Chloride 0.9% 1000 ML 1,000 ML ONE (18:01)
[2023-04-08 18:07] LABS: Absolute Neutrophil Ct (ANC) 4.63 x10^3/uL (1.4-6.9); BASOPHIL % 0.8 % (0.0-0.4); Basophil (Absolute #) 0.07 x10^3/uL (0-0.4); Eosinophil % 2.5 % (0.00-5.0); Eosinophil (Absolute #) 0.22 x10^3/uL (0-0.5); Hematocrit 40.7 % (35-47); Hemoglobin 13.7 g/dL (12.0-16.0); IMMATURE GRAN # 0.01 x10^3u/L (0.00-0.03); IMMATURE GRAN % 0.1 % (0.00-0.4); Lymphocyte (Absolute #) 2.99 x10^3/uL (1.0-4.6); Lymphocytes % 34.2 % (24.0-44.0); Mean Cell Volume 90.8 fL (78-100); Mean Corpuscular Hemoglobin 30.6 pg (26-32); Mean Corpuscular Hgb Concent. 33.7 g/dL (32-36); Mean Platelet Volume 9.9 fL (7.5-11.0); Monocyte (Absolute #) 0.83 x10^3/uL (0.0-1.3); Monocytes % 9.5 % (0.0-12.0); Neutrophil % 52.9 % (36.0-66.0); Platelet Count 264 x10^3/uL (150-450); Red Blood Count 4.48 x10^6/uL (4.1-5.4); Red Cell Distribution Width 11.9 % (11.5-14.0); White Blood Count 8.8 x10^3/uL (4.0-10.5)
[2023-04-08 18:14] LABS: HCG URINE TEST NEGATIVE (NEGATIVE)
--- NOTE | 2023-04-08 18:27 | ERPHSYRPT ---
- History of Present Illness Time Seen by Provider: 04/08/23 17:20 Source: patient Exam Limitations: no limitations Patient Subjective Stated Complaint: Hypotension/Weakness Triage Nursing Assessment: Patient ambulated back to ED and transferred self to bed. Patient A+O x 3. Patient's skin pink, warm and dry. Patient states she went to see her PCP Dr. Scott for a recent syncopal epsiode of Friday. Patient states she has been feeling dizzy and weak since. Patient was seen by Dr. Scott and was told to come to ED for eval due to low b/p as of . Patient denies pain or discomfort. Physician History: Patient is a 28-year-old female presents to our ED as a referral from her primary care doctor for evaluation of blood pressure. Patient states she had a syncopal episode on Friday. Patient was on the toilet. Patient felt dizzy patient got up and had a syncopal episode in the kitchen. Patient did not immediately follow-up at that time. Patient called her primary care doctor. Patient was at her PCP today. Patient states that she has been feeling somewhat dizzy. No other complaints. No pain. No chest pain or shortness of breath. No nausea vomiting or diaphoresis. Patient voices no other complaints or concerns at this time. Portions of this note were created with voice recognition technology. There may be grammatical, spelling, punctuation or sound alike errors Timing/Duration: day(s) (3 days ago) Severity: moderate Modifying Factors: Improves With: nothing Associated Symptoms: denies symptoms Allergies/Adverse Reactions: [place] And Derivatives Allergy (Verified 11/05/20 10:16) Penicillins Allergy (Verified 04/08/23 17:06) strawberry Allergy (Verified 11/05/20 10:16) Sulfa (Sulfonamide Antibiotics) Allergy (Verified 04/08/23 17:06) Home Medications: No Reportable Medications [No Reported Medications] 04/08/23 [History] Hx Tetanus, Diphtheria Vaccination/Date Given: Yes Hx Influenza Vaccination/Date Given: No Hx Pneumococcal Vaccination/Date Given: No Immunizations Up to Date: Yes Travel Risk - International Travel Have you traveled outside of the country in past 3 weeks: No - Coronavirus Screening Are you exhibiting any of the following symptoms?: No Close contact with a COVID-19 positive Pt in past 14-21 Days: No - Vaccine Status Have you recieved a Covid-19 vaccination: No - Review of Systems Constitutional: No Symptoms, No Fever, No Chills Eyes: No Symptoms Ears, Nose, & Throat: No Symptoms Respiratory: No Symptoms, No Cough, No Dyspnea Cardiac: No Symptoms, No Chest Pain, No Edema, No Syncope Abdominal/Gastrointestinal: No Symptoms, No Abdominal Pain, No Nausea, No Vomiting, No Diarrhea Genitourinary Symptoms: No Symptoms, No Dysuria Musculoskeletal: No Symptoms, No Back Pain, No Neck Pain Skin: No Symptoms, No Rash Neurological: No Symptoms, No Dizziness, No Focal Weakness, No Sensory Changes Psychological: No Symptoms Endocrine: No Symptoms Hematologic/Lymphatic: No Symptoms Immunological/Allergic: No Symptoms All Other Systems: Reviewed and Negative - Past Medical History Pertinent Past Medical History: Yes Neurological History: No Pertinent History ENT History: No Pertinent History Cardiac History: No Pertinent History Respiratory History: No Pertinent History Endocrine Medical History: No Pertinent History Musculoskeletal History: No Pertinent History GI Medical History: No Pertinent History History: No Pertinent History Psycho-Social History: No Pertinent History Female Reproductive Disorders: No Pertinent History Other Medical History: reflux of kidneys - Past Surgical History Past Surgical History: Yes Neuro Surgical History: No Pertinent History Cardiac: No Pertinent History Respiratory: No Pertinent History Gastrointestinal: No Pertinent History Genitourinary: No Pertinent History Musculoskeletal: Orthopedic Surgery Female Surgical History: No Pertinent History Other Surgical History: right knee ACL - Social History Smoking Status: Never smoker Exposure to second hand smoke: Yes Drug Use: none Patient Lives Alone: No - Female History Hx Last Menstrual Period: IUD Hx Now: No - Nursing Vital Signs Nursing Vital Signs: Initial Vital Signs Temperature 98.2 F 04/08/23 17:07 Pulse Rate 79 04/08/23 17:07 Respiratory Rate 18 04/08/23 17:07 Blood Pressure 95/72 04/08/23 17:07 O2 Sat by Pulse Oximetry 99 04/08/23 17:07 Pain Scale Pain Intensity 0 - Physical Exam General Appearance: no apparent distress, alert Eye Exam: PERRL/EOMI, eyes nml inspection Ears, Nose, Throat Exam: normal ENT inspection, TMs normal, pharynx normal, moist mucous membranes Neck Exam: normal inspection, non-tender, supple, full range of motion Respiratory Exam: normal breath sounds, lungs clear, airway intact, No respiratory distress Cardiovascular Exam: regular rate/rhythm, normal heart sounds, normal peripheral pulses Gastrointestinal/Abdomen Exam: soft, normal bowel sounds, No tenderness, No mass Back Exam: normal inspection, normal range of motion, No CVA tenderness, No vertebral tenderness Extremity Exam: normal inspection, normal range of motion, pelvis stable Neurologic Exam: alert, 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, cooperative, normal mood/affect, nml cerebellar function, nml station & gait, sensation nml, No motor deficits Skin Exam: normal color, warm, dry, No rash Lymphatic Exam: No adenopathy SpO2 Interpretation: normal SpO2: 100 O2 Delivery: Room Air - Course Nursing assessment & vital signs reviewed: Yes EKG Interpreted by Me: RATE (66), Sinus Rhythm, NORMAL AXIS, NORMAL INTERVALS - CT Exams Head CT Interpretation: Tele-radiologist Report (No acute intracranial pathology) Ordered Tests: Active Orders 24 hr Category Date Time Status Facilities Operator STAT Care 04/08/23 17:57 Active EKG-ER Only STAT Care 04/08/23 17:56 Active IV Insertion STAT Care 04/08/23 17:56 Active Pulse Oximetry (ED) STAT Care 04/08/23 17:56 Active HEAD WITHOUT CONTRAST [CT] Stat Exams 04/08/23 18:19 Taken CBC W DIFF Stat Lab 04/08/23 17:17 Completed CMP Stat Lab 04/08/23 17:17 Completed HCG QUALITATIVE, URINE Stat Lab 04/08/23 18:00 Completed NT PRO BNPII Stat Lab 04/08/23 17:17 Completed TROPONIN Q4H Lab 04/08/23 17:17 Completed TROPONIN Q4H Lab 04/08/23 20:30 Completed TROPONIN Q4H Lab 04/09/23 02:00 Ordered TSH [TSH, 3RD Generation] Stat Lab 04/08/23 18:18 Completed UA W/RFX UR CULTURE Stat Lab 04/08/23 18:00 Completed Holter Monitor ONCE RT 04/08/23 21:48 Active Medication Summary Discontinued Medications Generic Name Dose Route Start Last Admin Trade Name Freq PRN Reason Stop Dose Admin Sodium Chloride 1,000 mls @ 999 mls/hr 04/08/23 17:56 04/08/23 19:29 Sodium Chloride 0.9% 1000 Ml IV 04/08/23 18:56 Infused .Q1H1M STA Infusion Sodium Chloride Confirm 08/29/23 18:01 Sodium Chloride 0.9% 1000 Ml Administered 04/08/23 18:02 Dose 1,000 mls @ .ROUTE .[facility]-MED ONE Lab/Rad Data: Laboratory Result Diagrams 04/08/23 17:17 04/08/23 17:17 Laboratory Results 04/08/23 04/08/23 04/08/23 Range/Units 20:30 18:50 18:18 WBC (4.0-10.5) x10^3/uL RBC (4.1-5.4) x10^6/uL Hgb (12.0-16.0) g/dL Hct (35-47) % MCV (78-100) fL MCH (26-32) pg MCHC (32-36) g/dL RDW (11.5-14.0) % Plt Count (150-450) x10^3/uL MPV (7.5-11.0) fL Gran % (36.0-66.0) % Immature Gran % (Auto) (0.00-0.4) % Nucleat RBC Rel Count (0.00-0.1) % Eos # (Auto) (0-0.5) x10^3/uL Immature Gran # (Auto) (0.00-0.03) x10^3u/L Absolute Lymphs (auto) (1.0-4.6) x10^3/uL Absolute Monos (auto) (0.0-1.3) x10^3/uL Absolute Nucleated RBC (0.00-0.01) x10^3u/L Lymphocytes % (24.0-44.0) % Monocytes % (0.0-12.0) % Eosinophils % (0.00-5.0) % Basophils % (0.0-0.4) % Absolute Granulocytes (1.4-6.9) x10^3/uL Basophils # (0-0.4) x10^3/uL Sodium (137-145) mmol/L Potassium (3.5-5.1) mmol/L Chloride (98-107) mmol/L Carbon Dioxide (22-30) mmol/L Anion Gap (5-15) MEQ/L BUN (7-17) mg/dL Creatinine (0.52-1.04) mg/dL Estimated GFR ML/MIN Glucose (74-106) mg/dL Calcium (8.4-10.2) mg/dL Total Bilirubin (0.2-1.3) mg/dL AST (14-36) U/L ALT (0-35) U/L Alkaline Phosphatase (38-126) U/L Troponin I < 0.012 (0.000-0.034) ng/mL NT-Pro-B Natriuret Pep (<300) pg/mL Serum Total Protein (6.3-8.2) g/dL Albumin (3.5-5.0) g/dL TSH 3rd Generation 1.660 (0.47-4.68) mIU/L Urine Color (Yellow) Urine Appearance (Clear) Urine pH (4.6-8.0) Ur Specific [place] (1.005-1.030) Urine Protein (Negative) Urine Glucose (UA) (Negative) mg/dL Urine Ketones (Negative) Urine Blood (Negative) Urine Nitrite (Negative) Urine Bilirubin (Negative) Urine Urobilinogen (0.2) mg/dL Ur Leukocyte Esterase (Negative) U Hyaline Cast (Auto) (0-2) /LPF Urine Microscopic RBC (0-5) /HPF Urine Microscopic WBC (0-5) /HPF Ur Epithelial Cells (None Seen) /HPF Urine Bacteria (None Seen) /HPF Urine Culture Reflexed (NO) Urine HCG, Qual (NEGATIVE) Influenza Type A Ag NEGATIVE (NEGATIVE) Influenza Type B Ag NEGATIVE (NEGATIVE) RSV (PCR) NEGATIVE (NEGATIVE) SARS-CoV-2 (PCR) NEGATIVE (NEGATIVE) 04/08/23 04/08/23 04/08/23 Range/Units 18:00 18:00 17:17 WBC (4.0-10.5) x10^3/uL RBC (4.1-5.4) x10^6/uL Hgb (12.0-16.0) g/dL Hct (35-47) % MCV (78-100) fL MCH (26-32) pg MCHC (32-36) g/dL RDW (11.5-14.0) % Plt Count (150-450) x10^3/uL MPV (7.5-11.0) fL Gran % (36.0-66.0) % Immature Gran % (Auto) (0.00-0.4) % Nucleat RBC Rel Count (0.00-0.1) % Eos # (Auto) (0-0.5) x10^3/uL Immature Gran # (Auto) (0.00-0.03) x10^3u/L Absolute Lymphs (auto) (1.0-4.6) x10^3/uL Absolute Monos (auto) (0.0-1.3) x10^3/uL Absolute Nucleated RBC (0.00-0.01) x10^3u/L Lymphocytes % (24.0-44.0) % Monocytes % (0.0-12.0) % Eosinophils % (0.00-5.0) % Basophils % (0.0-0.4) % Absolute Granulocytes (1.4-6.9) x10^3/uL Basophils # (0-0.4) x10^3/uL Sodium (137-145) mmol/L Potassium (3.5-5.1) mmol/L Chloride (98-107) mmol/L Carbon Dioxide (22-30) mmol/L Anion Gap (5-15) MEQ/L BUN (7-17) mg/dL Creatinine (0.52-1.04) mg/dL Estimated GFR ML/MIN Glucose (74-106) mg/dL Calcium (8.4-10.2) mg/dL Total Bilirubin (0.2-1.3) mg/dL AST (14-36) U/L ALT (0-35) U/L Alkaline Phosphatase (38-126) U/L Troponin I < 0.012 (0.000-0.034) ng/mL NT-Pro-B Natriuret Pep (<300) pg/mL Serum Total Protein (6.3-8.2) g/dL Albumin (3.5-5.0) g/dL TSH 3rd Generation (0.47-4.68) mIU/L Urine Color Yellow (Yellow) Urine Appearance Clear (Clear) Urine pH 6.5 (4.6-8.0) Ur Specific [place] 1.010 (1.005-1.030) Urine Protein Negative (Negative) Urine Glucose (UA) Negative (Negative) mg/dL Urine Ketones Negative (Negative) Urine Blood Negative (Negative) Urine Nitrite Negative (Negative) Urine Bilirubin Negative (Negative) Urine Urobilinogen 0.2 (0.2) mg/dL Ur Leukocyte Esterase Trace A (Negative) U Hyaline Cast (Auto) NONE SEEN (0-2) /LPF Urine Microscopic RBC 0-2 (0-5) /HPF Urine Microscopic WBC 0-2 (0-5) /HPF Ur Epithelial Cells Few (None Seen) /HPF Urine Bacteria None Seen (None Seen) /HPF Urine Culture Reflexed NO (NO) Urine HCG, Qual NEGATIVE (NEGATIVE) Influenza Type A Ag (NEGATIVE) Influenza Type B Ag (NEGATIVE) RSV (PCR) (NEGATIVE) SARS-CoV-2 (PCR) (NEGATIVE) 04/08/23 04/08/23 Range/Units 17:17 17:17 WBC 8.8 (4.0-10.5) x10^3/uL RBC 4.48 (4.1-5.4) x10^6/uL Hgb 13.7 (12.0-16.0) g/dL Hct 40.7 (35-47) % MCV 90.8 (78-100) fL MCH 30.6 (26-32) pg MCHC 33.7 (32-36) g/dL RDW 11.9 (11.5-14.0) % Plt Count 264 (150-450) x10^3/uL MPV 9.9 (7.5-11.0) fL Gran % 52.9 (36.0-66.0) % Immature Gran % (Auto) 0.1 (0.00-0.4) % Nucleat RBC Rel Count 0.0 (0.00-0.1) % Eos # (Auto) 0.22 (0-0.5) x10^3/uL Immature Gran # (Auto) 0.01 (0.00-0.03) x10^3u/L Absolute Lymphs (auto) 2.99 (1.0-4.6) x10^3/uL Absolute Monos (auto) 0.83 (0.0-1.3) x10^3/uL Absolute Nucleated RBC 0.00 (0.00-0.01) x10^3u/L Lymphocytes % 34.2 (24.0-44.0) % Monocytes % 9.5 (0.0-12.0) % Eosinophils % 2.5 (0.00-5.0) % Basophils % 0.8 (0.0-0.4) % Absolute Granulocytes 4.63 (1.4-6.9) x10^3/uL Basophils # 0.07 (0-0.4) x10^3/uL Sodium 137 (137-145) mmol/L Potassium 4.0 (3.5-5.1) mmol/L Chloride 102 (98-107) mmol/L Carbon Dioxide 24 (22-30) mmol/L Anion Gap 15.9 H (5-15) MEQ/L BUN 10 (7-17) mg/dL Creatinine 0.76 (0.52-1.04) mg/dL Estimated GFR > 60.0 ML/MIN Glucose 87 (74-106) mg/dL Calcium 8.7 (8.4-10.2) mg/dL Total Bilirubin 0.50 (0.2-1.3) mg/dL AST 21 (14-36) U/L ALT 21 (0-35) U/L Alkaline Phosphatase 80 (38-126) U/L Troponin I (0.000-0.034) ng/mL NT-Pro-B Natriuret Pep 253 (<300) pg/mL Serum Total Protein 7.6 (6.3-8.2) g/dL Albumin 4.3 (3.5-5.0) g/dL TSH 3rd Generation (0.47-4.68) mIU/L Urine Color (Yellow) Urine Appearance (Clear) Urine pH (4.6-8.0) Ur Specific [place] (1.005-1.030) Urine Protein (Negative) Urine Glucose (UA) (Negative) mg/dL Urine Ketones (Negative) Urine Blood (Negative) Urine Nitrite (Negative) Urine Bilirubin (Negative) Urine Urobilinogen (0.2) mg/dL Ur Leukocyte Esterase (Negative) U Hyaline Cast (Auto) (0-2) /LPF Urine Microscopic RBC (0-5) /HPF Urine Microscopic WBC (0-5) /HPF Ur Epithelial Cells (None Seen) /HPF Urine Bacteria (None Seen) /HPF Urine Culture Reflexed (NO) Urine HCG, Qual (NEGATIVE) Influenza Type A Ag (NEGATIVE) Influenza Type B Ag (NEGATIVE) RSV (PCR) (NEGATIVE) SARS-CoV-2 (PCR) (NEGATIVE) - Progress Progress: improved Progress Note: Patient is a 20-year-old female presents to our ED as a referral from her primary care doctor for syncope 3 days ago and hypotension observed today and the office setting. Upon arrival to our ED patient was asymptomatic. Physical exam essentially nonremarkable. EKG showed normal sinus rhythm. CT head negative for acute intracranial pathology. CBC CMP both negative for significa nt abnormalities. COVID test negative. hCG negative. BNP negative. Troponin negative x2. Urinalysis negative as well. TSH within normal limits. Patient's blood pressure upon arrival was 94/51. Patient received 1 L normal saline. Blood pressure is now 106/68. Patient remains asymptomatic. We will apply a Holter monitor. Neurologic exam within normal limits upon arrival to our ED and at the time of discharge. Patient will follow-up with her primary care doctor within 48 hours for reevaluation. The working diagnosis is dehydration, hypotension, syncope Complexity of problem addressed is moderate acute complicated No critical care time Complex of data reviewed and analyzed is moderate. Test ordered. Test reviewed and analyzed. Clinical correlation made between testing results and history and physical examination. Risk of complication and or risk of morbidity/mortality of patient management is moderate. Patient will receive a Holter monitor for home for further evaluation and treatment. Vital now stable. Clinical diagnosis is syncope, dehydration, hypotension. Time spent to discharge patient is approximately 15 minutes. Plan of care established for shared decision making. No social determinants of health present to impede follow-up. Patient asymptomatic at time of discharge. Patient voices no other complaints or concerns at this time. Portions of this note were created with voice recognition technology. There may be grammatical, spelling, punctuation or sound alike errors 04/08/23 21:56 Counseled pt/family regarding: lab results, diagnosis, need for follow-up, rad results - Departure Departure Disposition: Home Clinical Impression: Syncope, Hypotension, Dehydration Condition: Stable Critical Care Time: No Referrals: LINUS SCOTT [Primary Care Provider] - Follow up/PCP as directed Additional Instructions: Discharge/Care Plan HERSON BERGER was seen on 04/08/23 in the Emergency Room. The patient was coun seled regarding Diagnosis,Lab results, Imaging studies, need for follow up and when to return to the Emergency Room. Prescriptions given: Discharge Note I have spoken with the patient and/or caregivers. I have explained the patient's condition, diagnosis and treatment plan based on the information available to me at this time. I have answered the patient's and/or caregiver's questions and addressed any concerns. The patient and/or caregivers have as good understanding of the patient's diagnosis, condition and treatment plan as can be expected at this point. The vital signs have been stable. The patient's condition is stable and appropriate for discharge from the emergency department. The patient will pursue further outpatient evaluation with the primary care physician or other designated or consulting physician as outlined in the discharge instructions. The patient and/or caregivers are agreeable to this plan of care and follow-up instructions have been explained in detail. The patient and/or caregivers have received these instruction. The patient/and or caregivers are aware that any significant change in condition or worsening of symptoms should prompt an immediate return to this or the closest emergency department or call 911.
[2023-04-08 18:29] LABS: ALBUMIN 4.3 g/dL (3.5-5.0); ALKALINE PHOSPHATASE 80 U/L (38-126); ANION GAP 15.9 MEQ/L (5-15); BLOOD UREA NITROGEN 10 mg/dL (7-17); CHLORIDE 102 mmol/L (98-107); Calcium 8.7 mg/dL (8.4-10.2); Carbon Dioxide 24 mmol/L (22-30); Creatinine 1 0.76 mg/dL (0.52-1.04); EST GLOMERULAR FILTRATION RATE > 60.0 ML/MIN; Glucose 87 mg/dL (74-106); NT PRO BNPII 253 pg/mL (<300); SGOT/AST 21 U/L (14-36); SGPT/ALT 21 U/L (0-35); SODIUM 137 mmol/L (137-145); Total Protein 7.6 g/dL (6.3-8.2)
[2023-04-08 18:35] LABS: Appearance Clear (Clear); Bacteria None Seen /HPF (None Seen); Bilirubin Negative (Negative); Blood Negative (Negative); Epithelial Cells Few /HPF (None Seen); Glucose, Urine Negative (Negative); Hyaline Casts NONE SEEN /LPF (0-2); Ketones Negative (Negative); Nitrite Negative (Negative); Ph 6.5 (4.6-8.0); Protein,Urine Dip Negative (Negative); RBC 0-2 /HPF (0-5); Urobilinogen 0.2 mg/dL (0.2); WBC 0-2 /HPF (0-5)
[2023-04-08 18:36] LABS: ADD URINE CULTURE? NO (NO); Leukocyte Esterase Trace (Negative)
[2023-04-08 19:31] LABS: INFLUENZA A NEGATIVE (NEGATIVE); INFLUENZA B NEGATIVE (NEGATIVE); RESPIRATORY SYNCTIAL VIRUS NEGATIVE (NEGATIVE); SARS-CoV-2 Xpert Express NEGATIVE (NEGATIVE)
[2023-04-08 21:47] VITALS: O2SAT 100
[2023-04-08 22:03] VITALS: BP 100/64; PULSE 74; RESP 20
--- NOTE | 2023-04-09 08:34 | XRAY ---
Indication: Dizziness. Status post fall. Multiple contiguous axial images obtained through the head without contrast. Comparison: None Normal appearing brain parenchyma, ventricles, and bony calvarium. Visualized paranasal sinuses and mastoid air cells are clear. Impression: Normal CT head without contrast exam.
== END 2023-04-08 22:21 | disposition home or self-care (01) ==
LOC: ED 16:57
DX: R55 Syncope and collapse (principal); I95.9 Hypotension, unspecified; E86.0 Dehydration; Z28.310 Unvaccinated for COVID-19
CPT/HCPCS: 0241U; 36000; 36415; 70450; 80053; 81001; 81025; 83880; 84443; 84484; 85025; 93005; 93041; 93225; 94760; 96360; 99284

== ENCOUNTER 2023-04-10 12:22 | Emergency (ER) | payer OTHER ==
[2023-04-10] MEDS ORDERED: Sodium Chloride 0.9% 1000 ML 1,000 ML IV STA (12:43)
--- NOTE | 2023-04-10 12:43 | ERPHSYRPT ---
- History of Present Illness Time Seen by Provider: 04/10/23 12:35 Source: EMS, old records Exam Limitations: no limitations Patient Subjective Stated Complaint: " I was at work and I felt like I was going to faint, I did black out for a moment. I was here the other day for the same problem. I have a holter vest on now." Triage Nursing Assessment: Pt presents to ER with complaints of syncopal episode which occurred at work. Pt is alert and 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 at this time. Skin is pink, warm, and dry. Respirations are easy. Pupils PERRL. States has all over body weakness and "feels like I've been at the gym working out - I just feel tired and weak and ana numb all over". Pt denies dizziness or nausea. Denies pain at this time. Physician History: This is a 28-year-old white female patient who was brought into the emergency department by the ambulance service who provided independent history because of a near syncopal episode. Patient was at her work when she was feeling as though she was going to pass out. She sat down and thinks that maybe she blacked out for just a brief moment. Patient has a Holter monitor in place which was placed on 04/08/2023 (less than 48 hours ago). In the last few days she has had 3 near syncopal episodes. She has never had low blood pressure and in the last 3 days she was found to have systolic blood pressures in the 90s. She was seen in our emergency department on 04/08/2023 and I reviewed the emergency department note as well as the laboratory data and EKG. I also reviewed the results of the CT scan of the head without contrast on that same date. Patient denies chest pain. She has no headache. She has no abdominal pain. She has had no nausea vomiting or diarrhea symptoms. Timing/Duration: today Severity: mild Character of Deficits: none Deficits: no difficulties Baseline/Normal Cognition: alert 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 Current Cognition: alert 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 Baseline Gait: walks w/o assistance Associated Symptoms: denies symptoms Allergies/Adverse Reactions: [place] And Derivatives Allergy (Verified 04/10/23 12:31) Penicillins Allergy (Verified 04/10/23 12:31) strawberry Allergy (Verified 04/10/23 12:31) Sulfa (Sulfonamide Antibiotics) Allergy (Verified 04/10/23 12:31) Hx Tetanus, Diphtheria Vaccination/Date Given: Yes Hx Influenza Vaccination/Date Given: No Hx Pneumococcal Vaccination/Date Given: No Immunizations Up to Date: No Travel Risk - International Travel Have you traveled outside of the country in past 3 weeks: No - Coronavirus Screening Are you exhibiting any of the following symptoms?: No Close contact with a COVID-19 positive Pt in past 14-21 Days: No - Vaccine Status Have you recieved a Covid-19 vaccination: No - Review of Systems Constitutional: No Symptoms Eyes: No Symptoms Ears, Nose, & Throat: No Symptoms Respiratory: No Symptoms Cardiac: Syncope Abdominal/Gastrointestinal: No Symptoms Genitourinary Symptoms: No Symptoms Musculoskeletal: No Symptoms Skin: No Symptoms Neurological: No Symptoms Psychological: No Symptoms Endocrine: No Symptoms Hematologic/Lymphatic: No Symptoms Immunological/Allergic: No Symptoms All Other Systems: Reviewed and Negative - Past Medical History Pertinent Past Medical History: Yes Neurological History: No Pertinent History ENT History: No Pertinent History Cardiac History: No Pertinent History Respiratory History: No Pertinent History Endocrine Medical History: No Pertinent History Musculoskeletal History: No Pertinent History GI Medical History: No Pertinent History History: No Pertinent History Psycho-Social History: No Pertinent History Female Reproductive Disorders: No Pertinent History Other Medical History: reflux of kidneys - Past Surgical History Past Surgical History: Yes Neuro Surgical History: No Pertinent History Cardiac: No Pertinent History Respiratory: No Pertinent History Gastrointestinal: No Pertinent History Genitourinary: No Pertinent History Musculoskeletal: Orthopedic Surgery Female Surgical History: No Pertinent History Other Surgical History: right knee ACL - Social History Smoking Status: Never smoker Exposure to second hand smoke: No Drug Use: none Patient Lives Alone: No - Female History Hx Last Menstrual Period: 5 months ago Hx Now: No - Nursing Vital Signs Nursing Vital Signs: Initial Vital Signs Pulse Rate 83 04/10/23 12:25 Respiratory Rate 14 04/10/23 12:25 Blood Pressure 107/66 04/10/23 12:25 O2 Sat by Pulse Oximetry 95 04/10/23 12:25 Pain Scale Pain Intensity 0 - [employer] Coma Scale Best Eye Response ([employer]): (4) open spontaneously Best Verbal Response (Cherri): (5) oriented Best Motor Response ([employer]): (6) obeys commands Cherri Total: 15 - Physical Exam General Appearance: no apparent distress, alert, anxiety Eye Exam: bilateral eye: normal inspection, PERRL, EOMI, abnormal EOM Ears, Nose, Throat Exam: normal ENT inspection, moist mucous membranes Neck Exam: normal inspection, non-tender, supple, full range of motion Respiratory: normal breath sounds, lungs clear, airway intact, No chest tenderness, No respiratory distress Cardiovascular: regular rate/rhythm, normal heart sounds, normal peripheral pulses Gastrointestinal: No tenderness Pelvic Exam: not done Rectal Exam: not done Back Exam: normal inspection, normal range of motion, No CVA tenderness, No vertebral tenderness Extremity Exam: normal inspection, normal range of motion, pelvis stable 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, 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, 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 Exam: normal hearing, normal speech, PERRL, tongue midline Coordination/Gait: normal finger to nose, normal gait, normal cerebellar function Skin Exam: normal color, warm, dry SpO2 Interpretation: borderline oxygenation SpO2: 94 O2 Delivery: Room Air - Course Nursing assessment & vital signs reviewed: Yes EKG Interpreted by Me: RATE ([id number]), Sinus Rhythm, NORMAL AXIS, NORMAL INTERVALS, NORMAL QRS, NORMAL ST-T, Other (No acute ischemic changes on today's twelve-lead EKG) Ordered Tests: Active Orders 24 hr Category Date Time Status Manager Test STAT Care 04/10/23 12:44 Active Clean Catch Urine Specimen STAT Care 04/10/23 12:43 Active EKG-ER Only STAT Care 04/10/23 12:43 Active IV Insertion STAT Care 04/10/23 12:43 Active Pulse Oximetry (ED) STAT Care 04/10/23 12:43 Active CBC W DIFF Stat Lab 04/10/23 12:43 Completed CMP Stat Lab 04/10/23 Completed CULTURE,URINE Stat Lab 04/10/23 13:09 Received ETHYL ALCOHOL Stat Lab 04/10/23 Completed TROPONIN Q4H Lab 04/10/23 Completed TROPONIN Q4H Lab 04/10/23 16:45 Ordered TROPONIN Q4H Lab 04/10/23 20:45 Ordered TSH [TSH, 3RD Generation] Stat Lab 04/10/23 Received UA W/RFX UR CULTURE Stat Lab 04/10/23 13:09 Completed Urine Triage Profile Stat Lab 04/10/23 13:09 Completed Medication Summary Generic Name Dose Route Start Last Admin Trade Name Freq PRN Reason Stop Dose Admin Ceftriaxone Sodium/Dextrose 1 g in 50 mls @ 100 mls/hr 04/10/23 14:07 04/10/23 14:18 Rocephin 1 Gm-D5w 50 Ml Bag IV 04/10/23 14:36 100 ml/hr STAT STA 100 mls/hr Administration Discontinued Medications Generic Name Dose Route Start Last Admin Trade Name Constantin PRN Reason Stop Dose Admin Sodium Chloride 1,000 mls @ 999 mls/hr 04/10/23 12:43 04/10/23 14:02 Sodium Chloride 0.9% 1000 Ml IV 04/10/23 13:43 999 mls/hr .Q1H1M STA Administration Sodium Chloride Confirm 04/10/23 13:58 Sodium Chloride 0.9% 1000 Ml Administered 04/10/23 13:59 Dose 1,000 mls @ ud .ROUTE .STK-MED ONE Ceftriaxone Sodium/Dextrose Confirm 04/10/23 14:15 Rocephin 1 Gm-D5w 50 Ml Bag Administered 04/10/23 14:16 Dose 1 g in 50 mls @ ud IV .STK-MED ONE Lab/Rad Data: Laboratory Result Diagrams 04/10/23 12:43 04/10/23 Unknown Laboratory Results 04/10/23 04/10/23 04/10/23 Range/Units Unknown Unknown 13:09 WBC (4.0-10.5) x10^3/uL RBC (4.1-5.4) x10^6/uL Hgb (12.0-16.0) g/dL Hct (35-47) % MCV (78-100) fL MCH (26-32) pg MCHC (32-36) g/dL RDW (11.5-14.0) % Plt Count (150-450) x10^3/uL MPV (7.5-11.0) fL Gran % (36.0-66.0) % Immature Gran % (Auto) (0.00-0.4) % Nucleat RBC Rel Count (0.00-0.1) % Eos # (Auto) (0-0.5) x10^3/uL Immature Gran # (Auto) (0.00-0.03) x10^3u/L Absolute Lymphs (auto) (1.0-4.6) x10^3/uL Absolute Monos (auto) (0.0-1.3) x10^3/uL Absolute Nucleated RBC (0.00-0.01) x10^3u/L Lymphocytes % (24.0-44.0) % Monocytes % (0.0-12.0) % Eosinophils % (0.00-5.0) % Basophils % (0.0-0.4) % Absolute Granulocytes (1.4-6.9) x10^3/uL Basophils # (0-0.4) x10^3/uL Sodium 139 (137-145) mmol/L Potassium 4.8 (3.5-5.1) mmol/L Chloride 106 (98-107) mmol/L Carbon Dioxide 23 (22-30) mmol/L Anion Gap 15.2 H (5-15) MEQ/L BUN 8 (7-17) mg/dL Creatinine 0.65 (0.52-1.04) mg/dL Estimated GFR > 60.0 ML/MIN Glucose 78 (74-106) mg/dL Calcium 8.4 (8.4-10.2) mg/dL Total Bilirubin 0.70 (0.2-1.3) mg/dL AST 33 (14-36) U/L ALT 22 (0-35) U/L Alkaline Phosphatase 53 (38-126) U/L Troponin I < 0.012 (0.000-0.034) ng/mL Serum Total Protein 7.6 (6.3-8.2) g/dL Albumin 4.3 (3.5-5.0) g/dL Urine Color (Yellow) Urine Appearance (Clear) Urine pH (4.6-8.0) Ur Specific [place] (1.005-1.030) Urine Protein (Negative) Urine Glucose (UA) (Negative) mg/dL Urine Ketones (Negative) Urine Blood (Negative) Urine Nitrite (Negative) Urine Bilirubin (Negative) Urine Urobilinogen (0.2) mg/dL Ur Leukocyte Esterase (Negative) U Hyaline Cast (Auto) (0-2) /LPF Urine Microscopic RBC (0-5) /HPF Urine Microscopic WBC (0-5) /HPF Ur Epithelial Cells (None Seen) /HPF Urine Bacteria (None Seen) /HPF Urine Yeast (Budding) (None Seen) /HPF Urine Culture Reflexed (NO) Urine Opiates Level NEGATIVE (NEGATIVE) Ur Methadone NEGATIVE (NEGATIVE) Urine Barbiturates NEGATIVE (NEGATIVE) Ur Phencyclidine (PCP) NEGATIVE (NEGATIVE) Urine Amphetamine NEGATIVE (NEGATIVE) U Benzodiazepine Level NEGATIVE (NEGATIVE) Urine Cocaine NEGATIVE (NEGATIVE) Urine Marijuana (THC) POSITIVE (NEGATIVE) Ethyl Alcohol < 10 (0-10) mg/dL 04/10/23 04/10/23 Range/Units 13:09 12:43 WBC 9.6 (4.0-10.5) x10^3/uL RBC 4.61 (4.1-5.4) x10^6/uL Hgb 14.0 (12.0-16.0) g/dL Hct 41.6 (35-47) % MCV 90.2 (78-100) fL MCH 30.4 (26-32) pg MCHC 33.7 (32-36) g/dL RDW 12.1 (11.5-14.0) % Plt Count 276 (150-450) x10^3/uL MPV 10.0 (7.5-11.0) fL Gran % 55.6 (36.0-66.0) % Immature Gran % (Auto) 0.3 (0.00-0.4) % Nucleat RBC Rel Count 0.0 (0.00-0.1) % Eos # (Auto) 0.18 (0-0.5) x10^3/uL Immature Gran # (Auto) 0.03 (0.00-0.03) x10^3u/L Absolute Lymphs (auto) 3.10 (1.0-4.6) x10^3/uL Absolute Monos (auto) 0.85 (0.0-1.3) x10^3/uL Absolute Nucleated RBC 0.00 (0.00-0.01) x10^3u/L Lymphocytes % 32.5 (24.0-44.0) % Monocytes % 8.9 (0.0-12.0) % Eosinophils % 1.9 (0.00-5.0) % Basophils % 0.8 (0.0-0.4) % Absolute Granulocytes 5.31 (1.4-6.9) x10^3/uL Basophils # 0.08 (0-0.4) x10^3/uL Sodium (137-145) mmol/L Potassium (3.5-5.1) mmol/L Chloride (98-107) mmol/L Carbon Dioxide (22-30) mmol/L Anion Gap (5-15) MEQ/L BUN (7-17) mg/dL Creatinine (0.52-1.04) mg/dL Estimated GFR ML/MIN Glucose (74-106) mg/dL Calcium (8.4-10.2) mg/dL Total Bilirubin (0.2-1.3) mg/dL AST (14-36) U/L ALT (0-35) U/L Alkaline Phosphatase (38-126) U/L Troponin I (0.000-0.034) ng/mL Serum Total Protein (6.3-8.2) g/dL Albumin (3.5-5.0) g/dL Urine Color Yellow (Yellow) Urine Appearance Cloudy A (Clear) Urine pH 5.5 (4.6-8.0) Ur Specific [place] 1.015 (1.005-1.030) Urine Protein Negative (Negative) Urine Glucose (UA) Negative (Negative) mg/dL Urine Ketones Negative (Negative) Urine Blood Negative (Negative) Urine Nitrite Negative (Negative) Urine Bilirubin Negative (Negative) Urine Urobilinogen 0.2 (0.2) mg/dL Ur Leukocyte Esterase Large A (Negative) U Hyaline Cast (Auto) NONE SEEN (0-2) /LPF Urine Microscopic RBC 0-2 (0-5) /HPF Urine Microscopic WBC 21-50 A (0-5) /HPF Ur Epithelial Cells Moderate A (None Seen) /HPF Urine Bacteria Moderate A (None Seen) /HPF Urine Yeast (Budding) (None Seen) /HPF Urine Culture Reflexed YES (NO) Urine Opiates Level (NEGATIVE) Ur Methadone (NEGATIVE) Urine Barbiturates (NEGATIVE) Ur Phencyclidine (PCP) (NEGATIVE) Urine Amphetamine (NEGATIVE) U Benzodiazepine Level (NEGATIVE) Urine Cocaine (NEGATIVE) Urine Marijuana (THC) (NEGATIVE) Ethyl Alcohol (0-10) mg/dL - Progress Progress: improved, re-examined Progress Note: 04/10/23 14:12 This patient's medical issue is 1 of moderate complexity. Level complexity in the work-up performed is based on the review of the patient's past medical history, review of the patient's medication list, review the patient's drug allergy list, history present illness and physical findings on examination. This patient work-up includes urinalysis, twelve-lead EKG, troponin level, CBC, CMP and infusion of intravenous saline. I did not repeat the CT scan of the head or test since this patient had negative study findings less than 2 days ago. I reviewed the work-up results. The thyroid studies are pending. It is clear the patient has a significant urinary tract infection and this certainly could contribute to the patient's symptoms that she experienced today. We will provide her with 1 g of intravenous Rocephin. Patient will then get a prescription for Cipro 500 mg orally twice a day for 7 days. She will be instructed to drink plenty of fluids. She will continue the Holter monitor and follow-up with those Holter monitor directions and instructions. Counseled pt/family regarding: lab results, diagnosis, need for follow-up Medical Desision Making - Independent Historian Additional History obtained from: Spouse - Diagnostic Testing Diagnostic test were ordered, analyzed, and reviewed by me: Yes - Risk of complications The pt has a mod risk of morbidity or mortality based on: Need for prescription drug management - Departure Departure Disposition: Home Clinical Impression: Near syncope, UTI (urinary tract infection) Condition: Stable Critical Care Time: No Referrals: LINUS SCOTT [Primary Care Provider] - Follow up/PCP as directed Additional Instructions: Drink plenty of fluids. Continue your Holter monitor instructions. Take your antibiotics as prescribed. Follow-up with your primary care provider today by phone, 04/10/2023 to make arrangements for further evaluation management. Prescriptions: Ciprofloxacin [Cipro 500 MG] 500 mg PO BID #14 tablet
[2023-04-10 13:00] LABS: Absolute Neutrophil Ct (ANC) 5.31 x10^3/uL (1.4-6.9); BASOPHIL % 0.8 % (0.0-0.4); Basophil (Absolute #) 0.08 x10^3/uL (0-0.4); Eosinophil % 1.9 % (0.00-5.0); Eosinophil (Absolute #) 0.18 x10^3/uL (0-0.5); Hematocrit 41.6 % (35-47); IMMATURE GRAN # 0.03 x10^3u/L (0.00-0.03); IMMATURE GRAN % 0.3 % (0.00-0.4); Lymphocytes % 32.5 % (24.0-44.0); Mean Cell Volume 90.2 fL (78-100); Mean Corpuscular Hemoglobin 30.4 pg (26-32); Mean Corpuscular Hgb Concent. 33.7 g/dL (32-36); Monocyte (Absolute #) 0.85 x10^3/uL (0.0-1.3); Monocytes % 8.9 % (0.0-12.0); Neutrophil % 55.6 % (36.0-66.0); Platelet Count 276 x10^3/uL (150-450); Red Blood Count 4.61 x10^6/uL (4.1-5.4); Red Cell Distribution Width 12.1 % (11.5-14.0); White Blood Count 9.6 x10^3/uL (4.0-10.5)
[2023-04-10 13:20] LABS: ALBUMIN 4.3 g/dL (3.5-5.0); ALKALINE PHOSPHATASE 53 U/L (38-126); ANION GAP 15.2 MEQ/L (5-15); BLOOD UREA NITROGEN 8 mg/dL (7-17); CHLORIDE 106 mmol/L (98-107); Calcium 8.4 mg/dL (8.4-10.2); Carbon Dioxide 23 mmol/L (22-30); Creatinine 1 0.65 mg/dL (0.52-1.04); EST GLOMERULAR FILTRATION RATE > 60.0 ML/MIN; ETHYL ALCOHOL < 10 mg/dL (0-10); Glucose 78 mg/dL (74-106); Potassium 4.8 mmol/L (3.5-5.1); SGOT/AST 33 U/L (14-36); SGPT/ALT 22 U/L (0-35); SODIUM 139 mmol/L (137-145); Total Protein 7.6 g/dL (6.3-8.2)
[2023-04-10 13:35] LABS: Appearance Cloudy (Clear); Bacteria Moderate /HPF (None Seen); Bilirubin Negative (Negative); Blood Negative (Negative); Epithelial Cells Moderate /HPF (None Seen); Glucose, Urine Negative (Negative); Hyaline Casts NONE SEEN /LPF (0-2); Ketones Negative (Negative); Leukocyte Esterase Large (Negative); Nitrite Negative (Negative); Ph 5.5 (4.6-8.0); Protein,Urine Dip Negative (Negative); RBC 0-2 /HPF (0-5); Specific Gravity 1.015 (1.005-1.030); Urobilinogen 0.2 mg/dL (0.2); WBC 21-50 /HPF (0-5)
[2023-04-10 13:36] LABS: ADD URINE CULTURE? YES (NO)
[2023-04-10 13:39] LABS: Amphetamine,Urine NEGATIVE (NEGATIVE); Barbiturate,Urine NEGATIVE (NEGATIVE); Benzodiazepine,Urine NEGATIVE (NEGATIVE); Cocaine,Urine NEGATIVE (NEGATIVE); Methadone,Urine NEGATIVE (NEGATIVE); Opiate,Urine NEGATIVE (NEGATIVE); PCP,Urine NEGATIVE (NEGATIVE); THC,Urine POSITIVE (NEGATIVE)
[2023-04-10] MEDS ORDERED: Sodium Chloride 0.9% 1000 ML 1,000 ML ONE (13:58)
[2023-04-10] MEDS ORDERED: ROCEPHIN 1 Gm-D5w 50 ml Bag** 1 G/50 ML IVPB IV STA (14:07)
[2023-04-10] MEDS ORDERED: ROCEPHIN 1 Gm-D5w 50 ml Bag** 1 G/50 ML IVPB IV ONE (14:15)
[2023-04-10 15:34] VITALS: BP 115/60; PULSE 69; RESP 18; O2SAT 99
== END 2023-04-10 15:36 | disposition home or self-care (01) ==
LOC: ED 12:22
DX: N39.0 Urinary tract infection, site not specified (principal); R55 Syncope and collapse; Z28.310 Unvaccinated for COVID-19
CPT/HCPCS: 36000; 36415; 80053; 80307; 81001; 82077; 84443; 84484; 85025; 87086; 93005; 93041; 94760; 96365; 99284; J0696

== ENCOUNTER 2025-06-01 11:35 | Emergency (ER) | payer OTHER ==
[2025-06-01 11:38] VITALS: RESP 16
[2025-06-01 11:59] LABS: BASOPHIL % 0.5 % (0.1-1.2); Basophil (Absolute #) 0.05 x10^3/uL (0.01-0.08); Eosinophil (Absolute #) 0.24 x10^3/uL (0.04-0.36); Hematocrit 43.1 % (34.1-44.9); Hemoglobin 14.3 g/dL (11.2-15.7); IMMATURE GRAN # 0.05 x10^3u/L (0.001-0.031); IMMATURE GRAN % 0.5 % (0.001-0.429); Lymphocyte (Absolute #) 2.51 x10^3/uL (1.18-3.74); Mean Corpuscular Hemoglobin 30.8 pg (25.6-32.2); Mean Corpuscular Hgb Concent. 33.2 g/dL (32.2-35.5); Monocyte (Absolute #) 0.77 x10^3/uL (0.24-0.86); NUCLEATED RBC # 0.00 x10^3u/L (0.00-0.012); NUCLEATED RBC % 0.0 % (0.00-0.2); Platelet Count 260 x10^3/uL (182-369); Red Blood Count 4.65 x10^6/uL (3.93-5.22); White Blood Count 10.0 x10^3/uL (3.98-10.04)
[2025-06-01 12:12] LABS: Calcium 8.8 mg/dL (8.4-10.2); Carbon Dioxide 22.0 mmol/L (22-30); Creatinine 1 0.73 mg/dL (0.52-1.04); EST GLOMERULAR FILTRATION RATE 113.4 ML/MIN; Glucose 89.0 mg/dL (74-106); Potassium 4.0 mmol/L (3.5-5.1)
[2025-06-01] MEDS ORDERED: TORAdol 30 mg Injection ONE (12:27)
[2025-06-01] MEDS: TORAdol 30 mg Injection IV ONE (12:29)
--- NOTE | 2025-06-01 12:33 | ERPHSYRPT ---
- History of Present Illness Time Seen by Provider: 06/01/25 11:35 Source: patient Exam Limitations: no limitations Patient Subjective Stated Complaint: numbness to left hand, viual distubances, headache Triage Nursing Assessment: Patient walks to the bed with assistance. Breathing is easy, skin pink and dry. She states that 1 hour ago she had visual changes in her left eye, followed by numbness in her left hand. She experienced this before, with no diagnosis. 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 No speech difficulties. She states her vision is improving. She has a headache she rates 10/10. She denies any other pain. Physician History: She comes to the emergency room due to severe headache and numbness tingling on her arms. Patient has had the symptoms in the past has been worked up and cannot find the reasoning behind her symptoms. She says she was in class and started having blurred vision bilaterally and was dealing with a severe headache no nausea no vomiting the headache is throughout her head. Did not take anything for the headache. Timing/Duration: today Quality: sharpness Head Pain Location: frontal Severity of Pain-Max: severe Severity of Pain-Current: severe Recent Head Trauma: no recent headache/trauma Associated Symptoms: denies symptoms Previous symptoms: recently seen, recently treated Allergies/Adverse Reactions: [place] And Derivatives Allergy (Verified 06/01/25 12:02) Penicillins Allergy (Verified 06/01/25 12:02) strawberry Allergy (Verified 06/01/25 12:02) Sulfa (Sulfonamide Antibiotics) Allergy (Verified 06/01/25 12:02) Home Medications: No Reportable Medications [No Reported Medications] 06/01/25 [History] Hx Tetanus, Diphtheria Vaccination/Date Given: Yes Hx Influenza Vaccination/Date Given: No Hx Pneumococcal Vaccination/Date Given: No Travel Risk - International Travel Have you traveled outside of the country in past 3 weeks: No - Emerging Infectious Disease Are you exhibiting symptoms associated with any current EIDs: No - Review of Systems Eyes: No Symptoms Ears, Nose, & Throat: No Symptoms Respiratory: No Cough, No Dyspnea Cardiac: No Chest Pain, No Edema, No Syncope Abdominal/Gastrointestinal: No Abdominal Pain, No Nausea, No Vomiting, No Diarrhea Skin: No Rash Neurological: Headache Psychological: No Symptoms - Past Medical History Pertinent Past Medical History: Yes Neurological History: TIA ENT History: No Pertinent History Cardiac History: No Pertinent History Respiratory History: No Pertinent History Endocrine Medical History: No Pertinent History Musculoskeletal History: Fractures GI Medical History: No Pertinent History History: No Pertinent History Psycho-Social History: No Pertinent History Female Reproductive Disorders: No Pertinent History Other Medical History: HX OF TIAS. 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 HX OF LOW BP. HX OF R ACL, MCL, LCL REPAIR IN HIGHSCHOOL D/T BASKETBALL INJURY - Past Surgical History Past Surgical History: Yes Neuro Surgical History: No Pertinent History Cardiac: No Pertinent History Respiratory: No Pertinent History Gastrointestinal: No Pertinent History Genitourinary: No Pertinent History Musculoskeletal: Orthopedic Surgery Female Surgical History: No Pertinent History Other Surgical History: right knee ACL, surgery on hip- screws and plates - Female History Hx Last Menstrual Period: 3 years ago Hx Now: No - Social History Smoking Status: Never smoker Exposure to second hand smoke: No Drug Use: none - Social Determinants of Health Will the patient participate in the screening: Declined to provide - Nursing Vital Signs Nursing Vital Signs: Initial Vital Signs Pulse Rate 103 H 06/01/25 11:36 Respiratory Rate 16 06/01/25 11:36 Blood Pressure 111/75 06/01/25 11:36 O2 Sat by Pulse Oximetry 99 06/01/25 11:36 Pain Scale Pain Intensity 10 - Physical Exam General Appearance: no apparent distress Eye Exam: PERRL/EOMI Ears, Nose, Throat Exam: normal ENT inspection, moist mucous membranes Neck Exam: normal inspection, supple, full range of motion, No meningismus Cardiovascular Exam: regular rate/rhythm, normal heart sounds Mental Status Exam: 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, 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, 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: normal speech, PERRL, No facial droop Coordination/Gait Exam: normal cerebellar function Motor/Sensory Exam: no motor deficit, no sensory deficit Skin Exam: normal color, warm, dry, No rash SpO2 Interpretation: normal SpO2: 98 O2 Delivery: Room Air - CT Exams Head CT Interpretation: Negative Ordered Tests: Active Orders 24 hr Category Date Time Status HEAD WITHOUT CONTRAST [CT] Stat Exams 06/01/25 11:46 Taken BMP Stat Lab 06/01/25 11:55 Completed CBC W DIFF Stat Lab 06/01/25 11:55 Completed Medication Summary Generic Name Dose Route Start Last Admin Trade Name Freq PRN Reason Stop Dose Admin Sodium Chloride 1,000 mls @ 999 mls/hr 06/01/25 12:25 Sodium Chloride 0.9% 1000 Ml IV 06/01/25 13:25 .Q1H1M STA Discontinued Medications Generic Name Dose Route Start Last Admin Trade Name Constantin PRN Reason Stop Dose Admin Ketorolac Tromethamine 30 mg 06/01/25 12:24 Ketorolac Tromethamine 30 Mg/Ml Inj IV 06/01/25 12:25 STAT ONE Lab/Rad Data: Laboratory Result Diagrams 06/01/25 11:55 06/01/25 11:55 Laboratory Results 06/01/25 06/01/25 Range/Units 11:55 11:55 WBC 10.0 (3.98-10.04) x10^3/uL RBC 4.65 (3.93-5.22) x10^6/uL Hgb 14.3 (11.2-15.7) g/dL Hct 43.1 (34.1-44.9) % MCV 92.7 (79.4-94.8) fL MCH 30.8 (25.6-32.2) pg MCHC 33.2 (32.2-35.5) g/dL RDW 12.2 (11.7-14.4) % Plt Count 260 (182-369) x10^3/uL MPV 9.4 (9.4-12.3) fL Gran % 63.7 (34.0-71.1) % Immature Gran % (Auto) 0.5 H (0.001-0.429) % Nucleat RBC Rel Count 0.0 (0.00-0.2) % Eos # (Auto) 0.24 (0.04-0.36) x10^3/uL Immature Gran # (Auto) 0.05 H (0.001-0.031) x10^3u/L Absolute Lymphs (auto) 2.51 (1.18-3.74) x10^3/uL Absolute Monos (auto) 0.77 (0.24-0.86) x10^3/uL Absolute Nucleated RBC 0.00 (0.00-0.012) x10^3u/L Lymphocytes % 25.2 (19.3-51.7) % Monocytes % 7.7 (4.7-12.5) % Eosinophils % 2.4 (0.7-5.8) % Basophils % 0.5 (0.1-1.2) % Absolute Granulocytes 6.34 H (1.56-6.13) x10^3/uL Basophils # 0.05 (0.01-0.08) x10^3/uL Sodium 135 (135-145) mmol/L Potassium 4.0 (3.5-5.1) mmol/L Chloride 105 (98-107) mmol/L Carbon Dioxide 22 (22-30) mmol/L Anion Gap 12.7 (5-15) MEQ/L BUN 12 (7-17) mg/dL Creatinine 0.73 (0.52-1.04) mg/dL Estimated GFR 113.4 ML/MIN Glucose 89 (74-106) mg/dL Calcium 8.8 (8.4-10.2) mg/dL - Progress Progress: improved Air Movement: good Progress Note: 06/01/25 12:31 Patient's NIH is 0 GCS of 15 patient otherwise has a chronic standing history of the symptoms. Does see a neurologist for it is not on any medications for it. Patient has had MRI CT done but today she is stating that this is one of the worst headaches she has had therefore I did repeat another CT of her head without contrast to rule out any internal bleeding. Patient also had blood work done for any electrolyte abnormality or any leukocytosis all of which were negative and within normal limits. At this time plan is to give the patient some fluids and some Toradol to help her with her headache and will be discharged advised to follow-up with her neurologist for further evaluation management my differential includes migraine versus complex migraine versus tension headache I do not believe the patient suffering from meningitis as her physical exam did not reveal any findings for meningitis as her current needs test was negative Medical Desision Making - Discussion of managment Reviewed:: Test results - Departure Departure Disposition: Home Clinical Impression: Migraine Condition: Stable Critical Care Time: No Referrals: LINUS SCOTT [Primary Care Provider, INTERNAL MEDICINE] - Follow up/PCP as directed
--- NOTE | 2025-06-01 13:06 | XRAY ---
Indication: Headache. Multiple contiguous axial images obtained through the head without contrast. Comparison: April 08, 2023 Normal appearing brain parenchyma, ventricles, and bony calvarium. Visualized paranasal sinuses and mastoid air cells are clear. Impression: Continued normal CT head without contrast exam.
[2025-06-01 13:47] VITALS: BP 99/65
[2025-06-01 13:52] VITALS: PULSE 65; O2SAT 100
== END 2025-06-01 13:50 | disposition home or self-care (01) ==
LOC: ED 11:35
DX: G43.909 Migraine, unspecified, not intractable, without status migrainosus (principal); R20.2 Paresthesia of skin; H53.8 Other visual disturbances